=== PATIENT | female | born 1970 | race Caucasian/White ===

== ENCOUNTER 2019-06-09 12:37 | Observation (INO) | payer BC, OTHER ==
[2019-06-09 13:18] LABS: Absolute Lymphocytes (CBC) 1.5 K/uL (0.7-4.9); Basophils % 1.2 % (0-1.3); Hematocrit 42.9 % (36.0-45.0); Lymphocytes % 19.1 % (15.3-44.8); MPV 8.2 fL (7.6-11.3); RBC Red Blood Cell Count 5.04 M/uL (3.86-4.86)
--- NOTE | 2019-06-09 13:39 | EDPHYS ---
Physician Documentation [facility] Name: Imelda Quiñonez Age: 48 yrs Sex: Female : 1970 Arrival Date: 06/09/2019 Time: 12:38 Bed 6 Private MD: ED Physician Lj Urbina HPI: 06/09 13:33 This 48 yrs old Female presents to ER via Ambulatory with complaints of Chest alisha Pain, Numbness Of Arm. 13:33 The patient or guardian reports chest pain that is located primarily in the substernal alisha area, anterior chest wall, left. Onset: just prior to arrival. The pain radiates to the left arm. Associated signs and symptoms: The patient has no apparent associated signs or symptoms. The chest pain is described as a heaviness, a pressure. Modifying factors: The symptoms are alleviated by nothing. the symptoms are aggravated by nothing. Severity of pain: At its worst the pain was mild moderate in the emergency department the pain has improved mildly. The patient has not experienced similar symptoms in the past. Historical: - Allergies: 12:46 No Known Allergies; ca1 - Home Meds: 12:46 lisinopril-hydrochlorothiazide oral oral once daily [Active]; ca1 - PMHx: 12:46 Hypertension; ca1 - PSHx: 12:46 ; Tubal ligation; ca1 - Immunization history:: Adult Immunizations up to date. - Social history:: Smoking status: Patient reports the use of cigarette tobacco products, smokes one-half pack cigarettes per day. ROS: 13:33 Constitutional: Negative for fever, chills, and weight loss, Eyes: Negative for injury, alisha pain, redness, and discharge, ENT: Negative for injury, pain, and discharge, Neck: Negative for injury, pain, and swelling, Respiratory: Negative for shortness of breath, cough, wheezing, and pleuritic chest pain, Abdomen/GI: Negative for abdominal pain, nausea, vomiting, diarrhea, and constipation, Back: Negative for injury and pain, : Negative for injury, bleeding, discharge, and swelling, MS/Extremity: Negative for injury and deformity, Skin: Negative for injury, rash, and discoloration, Neuro: Negative for headache, weakness, numbness, tingling, and seizure, Psych: Negative for depression, anxiety, suicide ideation, homicidal ideation, and hallucinations, Endocrine: Negative for neck swelling, polydipsia, polyuria, polyphagia, and marked weight changes, Hematologic/Lymphatic: Negative for swollen nodes, abnormal bleeding, and unusual bruising. 13:33 Cardiovascular: Positive for chest pain, of the chest. Exam: 13:33 Constitutional: This is a well developed, well nourished patient who is awake, alert, alisha and in no acute distress. Head/Face: Normocephalic, atraumatic. Eyes: Pupils equal round and reactive to light, extra-ocular motions intact. Lids and lashes normal. Conjunctiva and sclera are non-icteric and not injected. Cornea within normal limits. Periorbital areas with no swelling, redness, or edema. ENT: Nares patent. No nasal discharge, no septal abnormalities noted. Tympanic membranes are normal and external auditory canals are clear. Oropharynx with no redness, swelling, or masses, exudates, or evidence of obstruction, uvula midline. Mucous membranes moist. Neck: Trachea midline, no thyromegaly or masses palpated, and no cervical lymphadenopathy. Supple, full range of motion without nuchal rigidity, or vertebral point tenderness. No Meningismus. Chest/axilla: Normal chest wall appearance and motion. Nontender with no deformity. No lesions are appreciated. Cardiovascular: Regular rate and rhythm with a normal S1 and S2. No gallops, murmurs, or rubs. Normal PMI, no JVD. No pulse deficits. Respiratory: Lungs have equal breath sounds bilaterally, clear to auscultation and percussion. No rales, rhonchi or wheezes noted. No increased work of breathing, no retractions or nasal flaring. Abdomen/GI: Soft, non-tender, with normal bowel sounds. No distension or tympany. No guarding or rebound. No evidence of tenderness throughout. Back: No spinal tenderness. No costovertebral tenderness. Full range of motion. Female : Normal external genitalia. Skin: Warm, dry with normal turgor. Normal color with no rashes, no lesions, and no evidence of cellulitis. MS/ Extremity: Pulses equal, no cyanosis. Neurovascular intact. Full, normal range of motion. Neuro: Awake and alert, GCS 15, oriented to person, place, time, and situation. Cranial nerves II-XII grossly intact. Motor strength 5/5 in all extremities. Sensory grossly intact. Cerebellar exam normal. Normal gait. Psych: Awake, alert, with orientation to person, place and time. Behavior, mood, and affect are within normal limits. 13:33 Musculoskeletal/extremity: Extremities: all appear grossly normal, with no appreciated pain with palpation, ROM: no acute changes, Circulation is intact in all extremities. Sensation intact. Compartment Syndrome exam of affected extremity: is normal. DVT Exam: No signs of deep vein thrombosis. no pain, no swelling, no tenderness, negative Homans' sign noted on exam, no appreciated bluish discoloration, no erythema, no increased warmth. Vital Signs: 12:44 Resp 21; Weight 117.93 kg; Height 5 ft. 9 in. (175.26 cm); Pain 6/10; ca1 13:13 BP 131 / 91; Pulse 92; Resp 22; Temp 98; Pulse Ox 100% ; sv 14:23 BP 137 / 84; Pulse 84; Resp 15; Pulse Ox 100% on 2 lpm NC; sv 14:50 BP 157 / 82 LA Sitting (auto/lg); Pulse 85; Resp 17; Pulse Ox 100% on 2 lpm NC; sv 15:00 BP 143 / 65; Pulse 82; Resp 12; Pulse Ox 100% on 2 lpm NC; sv 15:40 BP 120 / 81; Pulse 77; Resp 16; Pulse Ox 100% on 2 lpm NC; sv 12:44 Body Mass Index 38.39 (117.93 kg, 175.26 cm) ca1 Procedures: 15:25 Peripheral line: by aseptic technique a peripheral line was placed in the right [facility] external jugular vein. MDM: 12:43 Patient medically screened. [facility] 13:33 Data reviewed: vital signs, nurses notes, lab test result(s), EKG, radiologic studies, [facility] CT scan, plain films. 06/09 12:42 Order name: Basic Metabolic Panel; Complete Time: 14:40 [facility] 06/09 12:42 Order name: CBC with Diff; Complete Time: 13:31 [facility] 06/09 12:42 Order name: LFT's; Complete Time: 14:40 [facility] 06/09 12:42 Order name: Magnesium; Complete Time: 14:40 [facility] 06/09 12:42 Order name: NT PRO-BNP; Complete Time: 14:40 [facility] 06/09 12:42 Order name: PT-INR; Complete Time: 14:40 [facility] 06/09 12:42 Order name: Troponin (emerg Dept Use Only); Complete Time: 14:40 [facility] 06/09 12:42 Order name: XRAY Chest (1 view); Complete Time: 14:13 [facility] 06/09 12:42 Order name: Lipase; Complete Time: 14:40 [facility] 06/09 13:33 Order name: CT Aorta for Dissection [facility] 06/09 15:14 Order name: CT; Complete Time: 15:17 EDMS 06/09 15:16 Order name: US Extremity Venous W Compression Alex 06/09 15:39 Order name: Echo w/ Doppler sv 06/09 12:42 Order name: EKG; Complete Time: 12:43 [facility] 06/09 12:42 Order name: Cardiac monitoring; Complete Time: 13:12 [facility] 06/09 12:42 Order name: EKG - Nurse/Tech; Complete Time: 13:13 [facility] 06/09 12:42 Order name: IV Saline Lock; Complete Time: 13:13 [facility] 06/09 12:42 Order name: Labs collected and sent; Complete Time: 13:13 [facility] 06/09 12:42 Order name: O2 Per Protocol; Complete Time: 13:13 [facility] 06/09 12:42 Order name: O2 Sat Monitoring; Complete Time: 13:13 [facility] 06/09 13:26 Order name: Labs - recollect needed: PT and Chemistry; Complete Time: 14:58 dh4 Administered Medications: 14:25 Drug: NS 0.9% 1000 ml Route: IV; Rate: 125 ml/hr; Site: right upper arm; sv 16:33 Follow up: Response: No adverse reaction; IV Status: Infusion continued upon admission sv 14:25 Drug: Pepcid 20 mg Route: IVP; Site: right upper arm; sv 15:32 Follow up: Response: No adverse reaction sv 14:27 Drug: Zofran (Ondansetron) 4 mg Route: IVP; Site: right upper arm; sv 15:33 Follow up: Response: No adverse reaction sv 14:29 Drug: morphine 4 mg {Note: RASS2.} Route: IVP; Site: right upper arm; sv 15:34 Follow up: Response: No adverse reaction; RASS: Alert and Calm (0) sv 15:15 Drug: Lopressor 5 mg Route: IVP; Site: right jugular; sv 15:39 Follow up: Response: No adverse reaction sv 15:32 Not Given (Physician Discretion): Lopressor (metoprolol TARTRATE) 50 mg PO once sv 15:32 Drug: Lovenox 1 mg/kg Route: Sub-Q; Site: right lower abdomen; sv 15:39 Follow up: Response: No adverse reaction sv Disposition: 06/09/19 13:37 Hospitalization ordered by Pako Pickens for Inpatient Admission. Preliminary diagnosis are Other chest pain, Essential (primary) hypertension, Tobacco abuse counseling, Tobacco use, Pulmonary embolism - right lower lobe. - Bed requested for Telemetry/MedSurg (Inpatient). - Status is Inpatient Admission. sv - Condition is Fair. - Problem is new. - Symptoms have improved. Signatures: Dispatcher [employer] EDAve De La Cruz RN RN sv Anderson, Corey, MD MD cha Acob, Cheryl, RN RN [facility] Osiel Maria [facility] Corrections: (The following items were deleted from the chart) 15:11 13:37 Hospitalization Ordered by Pako Pickens DO for Inpatient Admission. Preliminary [facility] diagnosis is Other chest pain; Essential (primary) hypertension; Tobacco abuse counseling; Tobacco use. Bed requested for Telemetry/MedSurg (Inpatient). Status is Inpatient Admission. Condition is Fair. Problem is new. Symptoms have improved. alisha 15:21 15:11 06/09/2019 13:37 Hospitalization Ordered by Pako Pickens DO for Inpatient alisha Admission. Preliminary diagnosis is Other chest pain; Essential (primary) hypertension; Tobacco abuse counseling; Tobacco use. Bed requested for Telemetry/MedSurg (Inpatient). Status is Inpatient Admission. Condition is Fair. Problem is new. Symptoms have improved. [facility] 16:32 15:21 06/09/2019 13:37 Hospitalization Ordered by Pako Pickens DO for Inpatient sv Admission. Preliminary diagnosis is Other chest pain; Essential (primary) hypertension; Tobacco abuse counseling; Tobacco use; Pulmonary embolism - right lower lobe. Bed requested for Telemetry/MedSurg (Inpatient). Status is Inpatient Admission. Condition is Fair. Problem is new. Symptoms have improved. alisha
--- NOTE | 2019-06-09 13:39 | ER ---
Nurse's Notes [facility] Name: Imelda Quiñonez Age: 48 yrs Sex: Female : 1970 Arrival Date: 06/09/2019 Time: 12:38 Bed 6 Private MD: Diagnosis: Other chest pain;Essential (primary) hypertension;Tobacco abuse counseling;Tobacco use;Pulmonary embolism-right lower lobe Presentation: 06/09 12:44 Chief complaint: Patient states: chest pain that radiates towards back that began 30 ca1 minutes ago. Coronavirus screen: The patient has NOT traveled to [place] in the past 14 days. Proceed with normal triage procedures. Ebola Screen: Patient denies exposure to infectious person. Patient denies travel to an Ebola-affected area in the 21 days before illness onset. Risk Assessment: Do you want to hurt yourself or someone else? Patient reports no desire to harm self or others. 12:44 Acuity: XIN 2 ca1 12:44 Method Of Arrival: Ambulatory ca1 13:15 Initial Sepsis Screen: Does the patient meet any 2 criteria? RR > 20 per min. No. sv Patient's initial sepsis screen is negative. Does the patient have a suspected source of infection? No. Patient's initial sepsis screen is negative. Onset of symptoms was June 09, 2019. Historical: - Allergies: 12:46 No Known Allergies; ca1 - Home Meds: 12:46 lisinopril-hydrochlorothiazide oral oral once daily [Active]; ca1 - PMHx: 12:46 Hypertension; ca1 - PSHx: 12:46 ; Tubal ligation; ca1 - Immunization history:: Adult Immunizations up to date. - Social history:: Smoking status: Patient reports the use of cigarette tobacco products, smokes one-half pack cigarettes per day. Screenin:14 Abuse screen: Denies threats or abuse. Denies injuries from another. Nutritional sv screening: No deficits noted. Tuberculosis screening: No symptoms or risk factors identified. Fall Risk None identified. Assessment: 12:45 Also complains of shortness of breath. General: Appears in no apparent distress. sv uncomfortable, well groomed, well developed, Behavior is cooperative, appropriate for age, restless. Pain: Complains of pain in anterior aspect of left upper chest and left breast Pain radiates to back, chest and left arm Pain currently is 10 out of 10 on a pain scale. Quality of pain is described as sharp, Pain began suddenly, 30 min ago. Is continuous. Neuro: Level of Consciousness is awake, alert, obeys commands, Oriented to person, place, time, situation, Moves all extremities. Full function Gait is steady, Speech is normal. Cardiovascular: Patient's skin is warm and dry. Rhythm is sinus rhythm. Respiratory: Airway is patent Respiratory effort is even, unlabored, Respiratory pattern is regular, symmetrical. Derm: Skin is intact, Skin is pink, warm \T\ dry. Musculoskeletal: Range of motion: intact in all extremities. 13:50 Reassessment: Patient appears in no apparent distress at this time. Patient and/or sv family updated on plan of care and expected duration. Pain level reassessed. Patient is alert, oriented x 3, equal unlabored respirations, skin warm/dry/pink. Cardiovascular: Chest pain quality is pressure. 14:50 Reassessment: Pt back from CT, Joe stated that the IV to the right upper arm sv infiltrated after the CT study was done. Informed Dr Urbina. 14:59 Reassessment: Dr Urbina at the bedside attempting to place another IV. sv 15:00 Reassessment: Patient appears in no apparent distress at this time. Patient and/or sv family updated on plan of care and expected duration. Pain level reassessed. Patient is alert, oriented x 3, equal unlabored respirations, skin warm/dry/pink. 15:40 Reassessment: Echo at the bedside. sv 16:05 Reassessment: Patient appears in no apparent distress at this time. Patient and/or sv family updated on plan of care and expected duration. Pain level reassessed. Patient is alert, oriented x 3, equal unlabored respirations, skin warm/dry/pink. US at the bedside. Vital Signs: 12:44 Resp 21; Weight 117.93 kg; Height 5 ft. 9 in. (175.26 cm); Pain 6/10; ca1 13:13 BP 131 / 91; Pulse 92; Resp 22; Temp 98; Pulse Ox 100% ; sv 14:23 BP 137 / 84; Pulse 84; Resp 15; Pulse Ox 100% on 2 lpm NC; sv 14:50 BP 157 / 82 LA Sitting (auto/lg); Pulse 85; Resp 17; Pulse Ox 100% on 2 lpm NC; sv 15:00 BP 143 / 65; Pulse 82; Resp 12; Pulse Ox 100% on 2 lpm NC; sv 15:40 BP 120 / 81; Pulse 77; Resp 16; Pulse Ox 100% on 2 lpm NC; sv 12:44 Body Mass Index 38.39 (117.93 kg, 175.26 cm) ca1 ED Course: 12:38 Patient arrived in ED. mr 12:41 Lj Urbina MD is Attending Physician. alisha 12:42 EKG done, by radioisotope technologist. reviewed by Lj Urbina MD. sv 12:45 Triage completed. ca1 12:46 Arm band placed on right wrist. Patient placed in an exam room, on a stretcher, on ca1 airline attendant, on pulse oximetry. 12:50 Patient has correct armband on for positive identification. Placed in gown. Bed in low sv position. Call light in reach. Side rails up X 1. Adult w/ patient. construction skills teacher on. Pulse ox on. NIBP on. Door closed. Head of bed elevated. 12:50 Oxygen administration via nasal cannula \T\ 2L/min. sv 12:55 Missed attempt(s): 20 gauge in left forearm. Bleeding controlled, band aid applied, sv catheter tip intact. 13:05 Inserted saline lock: 22 gauge in right forearm, using aseptic technique. ,using sv aseptic technique. diffusics Blood collected. Flushed right forearm with 5 ml normal saline. 13:11 Ave Raymond, ROSALIA is Primary Nurse. sv 13:12 XRAY Chest (1 view) Sent. sv 13:23 Awaiting ED provider evaluation. sv 13:25 ED physician to see patient. sv 13:26 XRAY Chest (1 view) In Process Unspecified. EDMS 13:37 Pako Pickens DO is Hospitalizing Provider. alisha 13:40 Missed attempt(s): 22 gauge in left forearm. done by hermann LINDSEY. Bleeding controlled, sv band aid applied, catheter tip intact. 13:57 IV discontinued, intact, No redness/swelling at site. Pressure dressing applied, IV to sv the right FA. 14:20 Inserted saline lock: 22 gauge in right upper arm, using aseptic technique. ,using sv aseptic technique. diffusics Flushed right with 2 ml normal saline. 15:00 Missed attempt(s): 18 gauge in left EJ, done by Dr Urbina. Bleeding controlled, band sv aid applied, catheter tip intact. 15:05 Inserted saline lock: 18 gauge in right EJ, using aseptic technique. ,using aseptic sv technique. done by Dr Urbina. 15:20 CT Aorta for Dissection Sent. sv 15:41 No provider procedures requiring assistance completed. sv Administered Medications: 14:25 Drug: NS 0.9% 1000 ml Route: IV; Rate: 125 ml/hr; Site: right upper arm; sv 16:33 Follow up: Response: No adverse reaction; IV Status: Infusion continued upon admission sv 14:25 Drug: Pepcid 20 mg Route: IVP; Site: right upper arm; sv 15:32 Follow up: Response: No adverse reaction sv 14:27 Drug: Zofran (Ondansetron) 4 mg Route: IVP; Site: right upper arm; sv 15:33 Follow up: Response: No adverse reaction sv 14:29 Drug: morphine 4 mg {Note: RASS2.} Route: IVP; Site: right upper arm; sv 15:34 Follow up: Response: No adverse reaction; RASS: Alert and Calm (0) sv 15:15 Drug: Lopressor 5 mg Route: IVP; Site: right jugular; sv 15:39 Follow up: Response: No adverse reaction sv 15:32 Not Given (Physician Discretion): Lopressor (metoprolol TARTRATE) 50 mg PO once sv 15:32 Drug: Lovenox 1 mg/kg Route: Sub-Q; Site: right lower abdomen; sv 15:39 Follow up: Response: No adverse reaction sv Outcome: 13:37 Decision to Hospitalize by Provider. alisha 15:41 Admitted to Tele accompanied by tech, via stretcher, room 403, with chart, Report sv called to Maria Luisa LINDSEY 15:41 Condition: stable 15:41 Instructed on the need for admit. 16:32 Patient left the ED. sv Signatures: Dispatcher [employer] EDMS Ave Raymond RN RN sv Anderson, Corey, MD MD cha Rivera, Mary mr Acob, Cheryl, RN RN ca1 Corrections: (The following items were deleted from the chart) 13:25 12:45 Pain: Complains of pain in anterior aspect of left upper chest and left breast sv Pain radiates to left arm Pain currently is 10 out of 10 on a pain scale. Quality of pain is described as sharp, Pain began suddenly, 30 min ago. Is continuous, sv 14:29 morphine 4 mg IVP in right upper arm sv 15:00 Response: No adverse reaction sv sv
[2019-06-09] MEDS ORDERED: MORPHINE 4 MG/ML SYR ONE (13:40)
[2019-06-09] MEDS ORDERED: FAMOTIDINE 20 MG/2 ML VIAL IV ONE (13:41)
[2019-06-09] MEDS ORDERED: ONDANSETRON 4 MG/2 ML VIAL ONE (13:41)
[2019-06-09] MEDS ORDERED: METOPROLOL TARTRATE 5 MG/5 ML INJ IV ONE (13:41)
[2019-06-09] MEDS ORDERED: NA CHLORIDE 0.9% 1,000 ML ONE (13:41)
--- NOTE | 2019-06-09 13:48 | RAD REPORT ---
EXAM DESCRIPTION: RAD - Chest Single View - 06/09/2019 1:25 pm CLINICAL HISTORY: CHEST PAIN COMPARISON: No comparisons TECHNIQUE: AP portable chest image was obtained 06/09/2019 1:25 pm . FINDINGS: Lungs are clear. Heart and vasculature are normal. No measurable pleural effusion and no p neumothorax. No acute bony abnormality seen. No acute aortic findings suspected. IMPRESSION: No acute cardiopulmonary process.
[2019-06-09 14:10] LABS: Protime INR 1.02
[2019-06-09 14:21] LABS: ALT/SGPT 102 U/L (12-78); AST/SGOT 43 U/L (15-37); Albumin 3.5 g/dL (3.4-5.0); Alkaline Phosphatase 88 U/L (45-117); BUN Blood Urea Nitrogen 13 mg/dL (7-18); Bicarbonate 24 mmol/L (21-32); Bilirubin Direct 0.2 mg/dL (0-0.2); Bilirubin Total 0.5 mg/dL (0.2-1.0); Glucose Level 110 mg/dL (74-106); Lipase 138 U/L (73-393); NT PRO-BNP 51 pg/mL (<125); Potassium 3.3 mmol/L (3.5-5.1); Protein, Total 7.8 g/dL (6.4-8.2); Sodium Level 138 mmol/L (136-145); Troponin (Emerg Dept Use Only) < 0.02 ng/mL (0.0-0.045)
--- NOTE | 2019-06-09 14:22 | P.HP ---
Certification for Inpatient Patient admitted to: Observation With expected LOS: <2 Midnights Patient will require the following post-hospital care: None Practitioner: I am a practitioner with admitting privileges, knowledge of patient current condition, hospital course, and medical plan of care. Services: Services provided to patient in accordance with Admission requirements found in Title 42 Section 412.3 of the Code of Federal Regulations Patient History Date of Service: 06/09/19 Primary Care Provider: [facility] Reason for admission: Chest pain History of Present Illness: 48-year-old female with history of recently diagnosed hypertension presented to the emergency room with chest pain. Patient was seen by her PCP last week for UTI. At that time she was found to have elevated blood pressure. She kept a log of her blood pressures and followed up with her PCP yesterday. Blood pressure remain elevated. She was started on lisinopril hydrochlorothiazide 10/12.5 mg daily. She started her medication this morning. Then around 11:00 a.m. she started feel lightheaded some dizziness noted. She reported some chest pain mainly to the left lower rib cage region on the left side. The pain would radiate to her breast region and then to the center of the chest. It was a severe pain 10/10. She continued to have chest pain and mild shortness of breath. He came to the ER for further evaluation. In the ER patient evaluated. Blood pressure stable. EKG showed no significant is T changes. Troponin pending at this time. CBC unremarkable. Chest x-ray unremarkable. CT chest pending at this time. Patient admitted for observation. When I saw the patient ER, she appeared stable. Some discomfort with mobility. Patient reports history recently diagnosed hypertension. She does smoke regularly. Drinks on occasion. This family history of heart disease. Home medications list reviewed: Yes - Past Medical/Surgical History -: Elevated blood pressures suspect hypertension -: Obesity -: Tobacco abuse -: History of elevated rheumatoid factor -: Tubal ligation -: Psychosocial/ Personal History: Patient is . 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 - Family History Father -: Heart disease, Hypertension, Lung disease (COPD) Mother -: Heart disease, Hypertension, Stroke - Social History Smoking Status: Heavy Tobacco smoker (>10 cigarettes/day) Counseled patient to stop smoking for: less than 10 minutes Smoking therapy provided: Yes Patient receptive to therapy: Yes Alcohol use: Yes Caffeine use: Yes Place of Residence: Home Review of Systems General: As per HPI Eyes: Unremarkable ENT: Unremarkable Respiratory: Shortness of Breath, As per HPI Cardiovascular: Chest Pain, Light Headedness, As per HPI Gastrointestinal: Unremarkable Genitourinary: Unremarkable Musculoskeletal: Unremarkable Integumentary: Unremarkable Neurological: Unremarkable Lymphatics: Unremarkable Physical Examination - Physical Exam General: Alert, In no apparent distress, Oriented x3, Cooperative HEENT: Atraumatic, Normocephalic, Mucous membr. moist/pink Neck: Supple Respiratory: Clear to auscultation bilaterally, Normal air movement, Other ( Point tenderness to the left ribcage region) Cardiovascular: Normal pulses, Regular rate/rhythm Gastrointestinal: Normal bowel sounds, Soft and benign, Non-distended, No tenderness, No masses, No rebound, No guarding Musculoskeletal: No erythema, No tenderness, No warmth Integumentary: No tenderness/swelling, No erythema, No warmth, No cyanosis Neurological: Normal speech, Normal strength at 5/5 x4 extr, Normal tone, Normal affect - Studies Laboratory Data (last 24 hrs) 06/09/19 13:05: WBC 7.9, Hgb 14.4, Hct 42.9, Plt Count 269 Assessment and Plan - Plan Impression: Chest pain atypical Recent diagnosis of hypertension Tobacco abuse Suspect underlying obstructive sleep apnea Plan: Chest pain atypical: Patient will be admitted for observation. Will continue to monitor patient on telemetry and cardiac enzymes. Will provide aspirin, DVT prophylaxis-Lovenox and Lipitor. Will hold off on blood pressure medication at this time. Will monitor blood pressures closely. Patient may require medication. Will provide medication for pain. Suspect noncardiac cause. Will monitor closely. CT chest pending at this time. Will obtain echocardiogram to further evaluate. Anticipate discharge in the next 24 hr with clinical improvement. Recent diagnosis of hypertension: Patient recently started on lisinopril hydrochlorothiazide. This may have dropped her blood pressure this morning causing the chest pain. Will hold off on lisinopril hydrochlorothiazide at this time. Will monitor blood pressure closely. Tobacco abuse: Will provide nicotine patch. Tobacco cessation addressed in detail. Suspect underlying obstructive sleep apnea: Will recommend sleep study to be done as an outpatient. Discharge Plan: Home Plan to discharge in: 24 Hours - Advance Directives Does patient have a Living Will: No Does patient have a Durable POA for Healthcare: No - Code Status/Comfort Care Code Status Assessed: Yes (patient is full code) Time Spent Managing Pts Care (In Minutes): 55
--- NOTE | 2019-06-09 15:06 | RAD REPORT ---
EXAM DESCRIPTION: CT - Angio Aorta For Dissection - 06/09/2019 2:43 pm CLINICAL HISTORY: Chest pain radiating to the back. CHEST PAIN COMPARISON: No comparisons TECHNIQUE: CT angiography of the aorta was performed with MIPs. All CT scans are performed using dose optimization technique as appropriate and may include automated exposure control or mA/KV adjustment according to patient size. FINDINGS: A left aortic arch is present with normal branching pattern of the great vessels.No acute aortic finding is seen such as aneurysm, penetrating ulcer or dissection. The celiac axis, SMA, YONG and renal arteries are widely patent. Filling defect is present in the posterior right lower lobe pulmonary arterial tree compatible with p ulmonary embolism. No RV strain pattern. The lungs are clear. The liver demonstrates no focal mass or biliary dilatation.The spleen, pancreas, adrenal glands and k idneys are within normal limits for arterial phase imaging. No bowel obstruction, free fluid or abscess.No pathologic enlarged lymphadenopathy identified. No fracture or worrisome bone lesion seen. IMPRESSION: No acute aortic finding is demonstrated. Positive for right lower lobe segmental pulmonary embolism.
[2019-06-09] MEDS ORDERED: ENOXAPARIN 30 MG/0.3 ML SQ ONE (15:31)
[2019-06-09] MEDS ORDERED: ENOXAPARIN 100 MG/ML SYR SQ ONE (15:31)
--- NOTE | 2019-06-09 16:41 | RAD REPORT ---
EXAM DESCRIPTION: US - Extrem Venous W Compress Alex - 06/09/2019 4:33 pm CLINICAL HISTORY: Pain;Swelling Bilateral leg edema and swelling. COMPARISON: No comparisons TECHNIQUE: Real-time sonographic interrogation of the left and right lower extremity deep venous sys tems was performed. FINDINGS: Normal compressibility, flow augmentation, phasic flow and spontaneous flow is identified in both the left and right lower extremity deep venous systems. IMPRESSION: No sonographic evidence of left or right lower extremity deep venous thrombosis.
[2019-06-09] MEDS ORDERED: ACETAMINOPHEN 500 MG TAB PO PRN (17:01)
[2019-06-09] MEDS ORDERED: ONDANSETRON 4 MG/2 ML VIAL IV PRN (17:01)
[2019-06-09] MEDS ORDERED: HYDROCODONE/APAP 7.5/325 MG TAB PO PRN (17:01)
[2019-06-09] MEDS ORDERED: TRAMADOL HCL 50 MG TAB PO PRN (17:01)
[2019-06-09] MEDS ORDERED: POTASSIUM 25 MEQ EFFERV TAB PO ONE (18:00)
[2019-06-09] MEDS ORDERED: Enoxaparin 120 MG/0.8 ML SYR SQ SCH (18:00)
[2019-06-09] MEDS ORDERED: NICOTINE 21 MG/PAT TD SCH (18:00)
[2019-06-09 18:28] VITALS: BMI 38.4
[2019-06-09 18:51] LABS: Barbiturates NEGATIVE (NEGATIVE); Benzodiazepines NEGATIVE (NEGATIVE); Cocaine NEGATIVE (NEGATIVE); METHAMPHETAM NEGATIVE (NEGATIVE); Methadone NEGATIVE (NEGATIVE); Opiates POSITIVE (NEGATIVE); Phencyclidine NEGATIVE (NEGATIVE); THC Cannibis NEGATIVE (NEGATIVE)
[2019-06-09 20:09] LABS: CKMB Creatine Kinase MB 2.2 ng/mL (0.3-3.6); Creatine Phosphokinase 54 U/L (26-192); Troponin I < 0.02 ng/mL (0.0-0.045)
[2019-06-10 03:28] LABS: CKMB Creatine Kinase MB 2.4 ng/mL (0.3-3.6); Creatine Phosphokinase 50 U/L (26-192); Troponin I < 0.02 ng/mL (0.0-0.045)
[2019-06-10 06:55] LABS: Magnesium 2.2 mg/dL (1.8-2.4); Potassium 3.8 mmol/L (3.5-5.1)
[2019-06-10 06:58] LABS: Thyroid Stimulating Hormone 5.28 uIU/mL (0.360-3.740)
[2019-06-10] MEDS ORDERED: NA CHLORIDE 0.9% 1,000 ML IV SCH (08:00)
[2019-06-10] MEDS ORDERED: NA CHLORIDE 0.9% 500 ML IV ONE (08:00)
[2019-06-10 08:32] VITALS: O2SAT 96
[2019-06-10] MEDS ORDERED: ASPIRIN EC 81 MG TAB PO SCH (09:00)
[2019-06-10] MEDS ORDERED: ENOXAPARIN 40 MG/0.4 ML SQ SCH (09:00)
[2019-06-10] MEDS ORDERED: POTASSIUM CL SA 10 MEQ TAB PO ONE (09:00)
--- NOTE | 2019-06-10 09:22 | P.CNS ---
Date of Consult: 06/10/19 Primary Care Provider: [facility] Chief Complaint: Pulmonary embolus History of Present Illness: Patient is 48 years of age admitted with sudden onset of left-sided pleuritic chest pain some shortness of breath recently treated for elevated blood pressure no other prior medical problems no prior history of thromboembolism admitted with a right ower lobe pulmonary emboli he denies any has symptoms of sepsis patient is a heavy smoker has dyspnea on exertion chronic cough Allergies No Known Allergies Allergy (Unverified 06/09/19 16:41) Home Medications: Lisinopril/Hydrochlorothiazide [Lisinopril-Hctz 10-12.5 mg Tab] 1 tab PO DAILY 06/09/19 Apixaban [Eliquis] 5 mg PO SEECOM #70 tablet 06/10/19 - Past Medical/Surgical History Diabetic: No -: Elevated blood pressures suspect hypertension -: Obesity -: Tobacco abuse -: History of elevated rheumatoid factor -: Tubal ligation -: Psychosocial/ Personal History: Patient is . 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 - Family History Father Medical History: Heart disease, Hypertension, Lung disease Mother Medical History: Heart disease, Hypertension, Stroke - Social History Smoking Status: Current every day smoker Alcohol use: Yes CD- Drugs: No Caffeine use: Yes Place of Residence: Home Review of Systems 10-point ROS is otherwise unremarkable Physical Examination Temp Pulse Resp BP Pulse Ox 97 F 74 18 110/50 L 18 L 06/10/19 08:00 06/10/19 08:00 06/10/19 08:00 06/10/19 08:00 06/10/19 08:00 General: Alert HEENT: Atraumatic Neck: Supple Respiratory: Clear to auscultation bilaterally Cardiovascular: No edema, Normal pulses, Regular rate/rhythm, Normal S1 S2 Laboratory Data (last 24 hrs) 06/09/19 13:45: PT 12.0, INR 1.02 06/09/19 13:45: Sodium 138, Potassium 3.3 L, BUN 13, Creatinine 0.89, Glucose 110 H, Magnesium 2.0, Total Bilirubin 0.5, AST 43 H, ALT 102 H, Alkaline Phosphatase 88, Lipase 138 06/09/19 13:05: WBC 7.9, Hgb 14.4, Hct 42.9, Plt Count 269 - Problems (1) Pulmonary emboli Current Visit: Yes Status: Acute Plan: Patient is 48 years of age admitted with right lower lobe pulmonary embolism as a filling defect over she complains of pain in the left side final signs blood pressure all stable has not been feeling well complaining of some dizziness as recently started on lisinopril oxygenation satisfactory may be side effect from the medication as stated discharged on a low-dose diuretic Maxzide and either Eliquis Xarelto ambulate no evidence of a DVT patient can be discharged home on the Dulera from the hospital and low-dose prednisone follow up with me in 2 weeks Qualifiers: Acute cor pulmonale presence: with acute cor pulmonale (2) COPD (chronic obstructive pulmonary disease) Current Visit: Yes Status: Acute Plan: Patient is a heavy smoker has dyspnea on exertion with a chronic cough benefit from a long-acting bronchodilator advice to quit smoking labs are unremarkable Qualifiers: Emphysema type: unspecified
[2019-06-10] MEDS ORDERED: DULERA 200/5 (MOMETASONE/FORMOTEROL) INHALER IH SCH (10:00)
[2019-06-10] MEDS ORDERED: predniSONE 20 MG TAB PO SCH (10:00)
--- NOTE | 2019-06-10 10:11 | P.DS ---
Admission Date: 06/09/19 Discharge Date: 06/10/19 Primary Care Provider: [facility] Disposition: ROUTINE DISCHARGE Discharge Condition: GOOD Reason for Admission: Pulmonary embolus Consultations: Pulmonary-Dr. Paniagua Procedures: Liver ultrasound: Fatty liver identified. No portal vein thrombus noted CT chest: FINDINGS: A left aortic arch is present with normal branching pattern of the great vessels.No acute aortic finding is seen such as aneurysm, penetrating ulcer or dissection. The celiac axis, SMA, YONG and renal arteries are widely patent. Filling defect is present in the posterior right lower lobe pulmonary arterial tree compatible with pulmonary embolism. No RV strain pattern. The lungs are clear. The liver demonstrates no focal mass or biliary dilatation.The spleen, pancreas , adrenal glands and kidneys are within normal limits for arterial phase imaging. No bowel obstruction, free fluid or abscess.No pathologic enlarged lymphadenopathy identified. No fracture or worrisome bone lesion seen. IMPRESSION: No acute aortic finding is demonstrated. Positive for right lower lobe segmental pulmonary embolism. Venous doppler: FINDINGS: Normal compressibility, flow augmentation, phasic flow and spontaneous flow is identified in both the left and right lower extremity deep venous systems. IMPRESSION: No sonographic evidence of left or right lower extremity deep venous thrombosis Medical Problem List: Chest pain secondary to right lower lobe segmental pulmonary embolism Acute renal injury likely dehydration and medication COPD Tobacco abuse Suspect underlying obstructive sleep apnea Elevated liver function secondary to fatty liver Brief History of Present Illness: 48-year-old female with history of recently diagnosed hypertension presented to the emergency room with chest pain. Patient was seen by her PCP last week for UTI. At that time she was found to have elevated blood pressure. She kept a log of her blood pressures and followed up with her PCP yesterday. Blood pressure remain elevated. She was started on lisinopril hydrochlorothiazide 10/12.5 mg daily. She started her medication this morning. Then around 11:00 a.m. she started feel lightheaded some dizziness noted. She reported some chest pain mainly to the left lower rib cage region on the left side. The pain would radiate to her breast region and then to the center of the chest. It was a severe pain 10/10. She continued to have chest pain and mild shortness of breath. He came to the ER for further evaluation. In the ER patient evaluated. Blood pressure stable. EKG showed no significant is T changes. Troponin pending at this time. CBC unremarkable. Chest x-ray unremarkable. CT chest pending at this time. Patient admitted for observation. When I saw the patient ER, she appeared stable. Some discomfort with mobility. Patient reports history recently diagnosed hypertension. She does smoke regularly. Drinks on occasion. This family history of heart disease. Hospital Course: Patient presented with chest pain. This was mainly to the left side. Upon further workup CT revealed right lower lobe segmental pulmonary embolism. Patient was started on anti coagulation therapy. No cardiac strain identified. Venous Doppler negative. Patient seen and evaluated by pulmonology. Pulmonology recommends anti coagulation therapy for at least 3-6 months. Patient may require lifelong anti coagulation therapy if further workup indicates. Lab for lupus anticoagulant, protein C/S, and factor 5 Leiden obtained. This can be followed up by pulmonology. Recommend follow up with pulmonology in 1-2 weeks to follow up this hospitalization. At discharge patient will continue with Eliquis 10 mg twice daily for 7 days then 5 mg twice daily. Education on Eliquis, pulmonary embolism provided. Patient also had low blood pressure with acute renal injury likely from dehydration. Patient was recently started on lisinopril hydrochlorothiazide for possible hypertension. Blood pressures have remained stable off medication. At discharge will recommend to discontinue lisinopril hydrochlorothiazide. Patient may monitor her blood pressures daily. Recommend to maintain blood pressures less 150/80. If blood pressure remains above 140/ 90 then patient may need to be started on medication. This can be further addressed by her PCP. Recommend to recheck BMP in 1 week. Patient likely with underlying COPD. Pulmonology recommends initiation of medication. Pulmonology recommends treatment. At discharge patient will continue with prednisone 20 mg 1 pill twice daily for 5 days then 1 pill once daily for 5 days. Patient will also continue with Dulera 2 puffs twice daily and Pro air 2 puffs 3 times a day as needed for shortness of breath. Recommend follow up with pulmonology to further address. Education on COPD provided. Patient with tobacco abuse. Tobacco cessation addressed in detail. Patient plans to quit. Patient will be provided nicotine patch to help with tobacco cessation. Patient likely with underlying obstructive sleep apnea. Recommend follow up with pulmonology for sleep study to further address. Education on obstructive sleep apnea provided. Patient had elevation in liver function. Ultrasound showed fatty liver. No portal vein thrombus noted. Education on fatty liver provided. Recommend follow up with GI as an outpatient to further address. Vital Signs/Physical Exam: Temp Pulse Resp BP Pulse Ox 97 F 74 18 110/50 L 18 L 06/10/19 08:00 06/10/19 08:00 06/10/19 08:00 06/10/19 08:00 06/10/19 08:00 General: Alert, In no apparent distress, Oriented x3, Cooperative HEENT: Atraumatic Neck: Supple Respiratory: Clear to auscultation bilaterally, Normal air movement Cardiovascular: Normal pulses, Regular rate/rhythm Gastrointestinal: Normal bowel sounds, Soft and benign, Non-distended, No tenderness, No masses, No rebound, No guarding Musculoskeletal: No erythema, No tenderness, No warmth Integumentary: No tenderness/swelling, No erythema, No warmth, No cyanosis Neurological: Normal speech, Normal strength at 5/5 x4 extr, Normal tone, Normal affect Laboratory Data at Discharge: WBC 7.9 K/uL (4.3-10.9) 06/09/19 13:05 Hgb 14.4 g/dL (12.0-15.0) 06/09/19 13:05 Hct 42.9 % (36.0-45.0) 06/09/19 13:05 Plt Count 269 K/uL (152-406) 06/09/19 13:05 PT 12.0 SECONDS (9.5-12.5) 06/09/19 13:45 INR 1.02 06/09/19 13:45 Sodium 138 mmol/L (136-145) 06/10/19 05:38 Potassium 3.8 mmol/L (3.5-5.1) 06/10/19 05:38 BUN 16 mg/dL (7-18) 06/10/19 05:38 Creatinine 1.00 mg/dL (0.55-1.3) 06/10/19 05:38 Glucose 100 mg/dL (74-106) 06/10/19 05:38 Magnesium 2.2 mg/dL (1.8-2.4) 06/10/19 05:38 Total Bilirubin 0.5 mg/dL (0.2-1.0) 06/09/19 13:45 AST 43 U/L (15-37) H 06/09/19 13:45 ALT 102 U/L (12-78) H 06/09/19 13:45 Alkaline Phosphatase 88 U/L (45-117) 06/09/19 13:45 Troponin I < 0.02 ng/mL (0.0-0.045) 06/10/19 02:56 Triglycerides 86 mg/dL (<150) 06/10/19 05:38 Cholesterol 198 mg/dL (<200) 06/10/19 05:38 HDL Cholesterol 70 mg/dL (40-60) H 06/10/19 05:38 Cholesterol/HDL Ratio 2.83 06/10/19 05:38 Lipase 138 U/L (73-393) 06/09/19 13:45 Home Medications: Albuterol Sulfate [Proair Hfa] 2 puff IH TID PRN #1 hfa.aer.ad 06/10/19 Apixaban [Eliquis] 5 mg PO SEECOM #70 tablet 06/10/19 Mometasone/Formoterol [Dulera 200 Mcg/5 Mcg Inhaler] 2 puff IH BID #1 inhaler Nicotine [Nicoderm*] 21 mg TD DAILY #30 patch.td24 06/10/19 predniSONE [Prednisone*] 20 mg PO SEECOM #15 tab 06/10/19 New Medications: Albuterol Sulfate [Proair Hfa] 2 puff IH TID PRN #1 hfa.aer.ad PRN Reason: Shortness Of Breath Apixaban [Eliquis] 5 mg PO SEECOM #70 tablet Mometasone/Formoterol [Dulera 200 Mcg/5 Mcg Inhaler] 2 puff IH BID #1 inhaler Nicotine [Nicoderm*] 21 mg TD DAILY #30 patch.td24 predniSONE [Prednisone*] 20 mg PO SEECOM #15 tab Patient Discharge Instructions: 1. Recommend follow up with her PCP to follow up this hospitalization. 2. Patient presented with chest pain. This was mainly to the left side. Upon further workup CT revealed right lower lobe segmental pulmonary embolism. Patient was started on anti coagulation therapy. No cardiac strain identified. Venous Doppler negative. Patient seen and evaluated by pulmonology. Pulmonology recommends anti coagulation therapy for at least 3-6 months. Patient may require lifelong anti coagulation therapy if further workup indicates. Lab for lupus anticoagulant, protein C/S, and factor 5 Leiden obtained. This can be followed up by pulmonology. Recommend follow up with pulmonology in 1-2 weeks to follow up this hospitalization. At discharge patient will continue with Eliquis 10 mg twice daily for 7 days then 5 mg twice daily. Education on Eliquis, pulmonary embolism provided. 3. Patient also had low blood pressure with acute renal injury likely from dehydration. Patient was recently started on lisinopril hydrochlorothiazide for possible hypertension. Blood pressures have remained stable off medication. At discharge will recommend to discontinue lisinopril hydrochlorothiazide. Patient may monitor her blood pressures daily. Recommend to maintain blood pressures less 150/80. If blood pressure remains above 140/ 90 then patient may need to be started on medication. This can be further addressed by her PCP. Recommend to recheck BMP in 1 week. 4. Patient likely with underlying COPD. Pulmonology recommends initiation of medication. Pulmonology recommends treatment. At discharge patient will continue with prednisone 20 mg 1 pill twice daily for 5 days then 1 pill once daily for 5 days. Patient will also continue with Dulera 2 puffs twice daily and Pro air 2 puffs 3 times a day as needed for shortness of breath. Recommend follow up with pulmonology to further address. Education on COPD provided. 5. Patient with tobacco abuse. Tobacco cessation addressed in detail. Patient plans to quit. Patient will be provided nicotine patch to help with tobacco cessation. 6. Patient had elevation in liver function. Ultrasound showed fatty liver. No portal vein thrombus noted. Education on fatty liver provided. Recommend follow up with GI as an outpatient to further address. 7. Patient likely with underlying obstructive sleep apnea. Recommend follow up with pulmonology for sleep study to further address. Education on obstructive sleep apnea provided. Diet: AHA Activity: Ad jose miguel Followup: Chino Paniagua MD [ACTIVE - CAN ADMIT] - (call to schedule appointment) Time spent managing pt's care (in minutes): 55
--- NOTE | 2019-06-10 10:36 | RAD REPORT ---
EXAM DESCRIPTION: US - Liver Only - 06/10/2019 10:20 am CLINICAL HISTORY: Elevated liver function COMPARISON: No comparisons FINDINGS: The liver demonstrates diffuse fatty infiltration.No focal liver lesion or intrahepatic bi liary dilatation.No evidence of portal vein thrombosis. IMPRESSION: Fatty liver.
--- NOTE | 2019-06-10 11:02 | EKG ---
Test Date: 2019-06-09 Test Time: 12:42:01 Phone Triage Specialist: CRISTAL MEASUREMENT RESULTS: Intervals: Rate: 112 IA: 142 QRSD: 92 QT: 346 QTc: 472 [place]: P: 71 IA: 142 QRS: 47 T: 42 INTERPRETIVE STATEMENTS: Sinus tachycardia with frequent atrial-paced complexes Abnormal ECG No previous ECG available for comparison Electronically Signed On 06-10-19 11:00:43 STRAIGHT TOOTH GEAR GENERATOR OPERATOR by Trell Hernandez
[2019-06-10 14:30] VITALS: BP 125/71; TEMP 98.4
[2019-06-10] MEDS ORDERED: RIVAROXABAN 15 MG TABLET PO SCH (17:00)
--- NOTE | 2019-06-12 08:48 | ECHO ---
HEIGHT: 5 ft 9 in WEIGHT: 260 lb 0 oz DATE OF STUDY: 06/09/[address]: Lj Urbina MD 2-DIMENSIONAL: YES M.MODE: YES DOPPLER: YES COLOR FLOW: YES TDS: YES PORTABLE: NO DEFINITY: NO BUBBLE STUDY: NO DIAGNOSIS: PULMONARY EMBOLISM CARDIAC HISTORY: CATHERIZATION: NO SURGERY: NO PROSTHETIC VALVE: NO PACEMAKER: NO MEASUREMENTS (cm) DIASTOLIC (NORMALS) SYSTOLIC (NORMALS) IVSd 1.1 (0.6-1.2) LA Diam 2.9 (1.9-4.0) LVEF 60% LVIDd 4.9 (3.5-5.7) LVIDs 3.3 (2.0-3.5) %FS 32% LVPWd 1.2 (0.6-1.2) Ao Diam 2.7 (2.0-3.7) 2 DIMENSIONAL ASSESSMENT: RIGHT ATRIUM: NORMAL LEFT ATRIUM: NORMAL RIGHT VENTRICLE: NORMAL LEFT VENTRICLE: NORMAL TRICUSPID VALVE: NORMAL MITRAL VALVE: NORMAL PULMONIC VALVE: NORMAL AORTIC VALVE: NORMAL PERICARDIAL EFFUSION: NONE AORTIC ROOT: NORMAL LEFT VENTRICULAR WALL MOTION: NORMAL DOPPLER/COLOR FLOW: TRACE TRICUSPID REGURGITATION. COMMENTS: NORMAL 2D ECHOCARDIOGRAM [facility] DOPPLER. NORMAL RIGHT VENTRICULAR SYSTOLIC PRESSURE. NORMAL RIGHT ATRIAL SIZE. TRACE TRICUSPID REGURGITATION. NO WALL MOTION ABORMALITY. NO EFFUSION. TECHNOLOGIST: Mary SEGUNDO
[2019-06-13 04:07] LABS: HBsAG Nonreactive (Nonreactive)
[2019-06-13 15:24] LABS: Protein C Antigen 96 % (70-140)
== END 2019-06-10 12:00 | disposition home or self-care (01) ==
LOC: ER 12:37 → ERHOLD 14:09 → 4TH 15:42
PROVIDERS: ADMIT Family Medicine; ATTEND Family Medicine
DX: I26.09 Other pulmonary embolism with acute cor pulmonale (principal); N17.9 Acute kidney failure, unspecified; E86.0 Dehydration; J44.9 Chronic obstructive pulmonary disease, unspecified; I10 Essential (primary) hypertension; K76.0 Fatty (change of) liver, not elsewhere classified; I07.1 Rheumatic tricuspid insufficiency; R00.0 Tachycardia, unspecified; R94.31 Abnormal electrocardiogram [ECG] [EKG]; F17.210 Nicotine dependence, cigarettes, uncomplicated; Z79.899 Other long term (current) drug therapy
CPT/HCPCS: 96361; 93005; 93306; 85025; 80048 ×2; 36415; 83735 ×2; 82550 ×2; 85610; 80061; 80076; 80307 ×8; 84443; 84484 ×3; 82553 ×2; 84439; 83690; 81241; 86038; 86225; 83880; 85302; 85305; 85306; 87522; 80074; 71275; 74175; 71045; 93970; 76705; 96375; 96372; 96374; 99285; Q9967; J1650 ×2; J7030 ×2; J2405; G0378 ×3; J7606

== ENCOUNTER 2024-07-03 07:24 | Emergency (ER) | payer BC ==
--- OUTSIDE RECORDS SUMMARY | 2024-07-03 07:28 | XMS REPORT | Continuity of Care Document ---
Author Name Unknown Address [address] [facility] [place] [address] [facility] Address [address] [facility] [place] [address] Care Team Providers Care Maxillofacial Prosthodontist Name Role Phone Stephanie Hallman Primary Care Physician [phone] HILLARY FRASER Attending Clinician Unavailable HILLARY FRASER Attending Clinician Unavailable KARLA SALAZAR Attending Clinician Unavailable KENNETH MCDANIEL Attending Clinician Unavailable Karime Cui MA Attending Clinician Unavailkavin Birmingham RN, Donna Attending Clinician Unavailable CATHY NEGRETE Attending Clinician Un available KARLA SALAZAR M.D. Attending Clinician Ashly kelly HEP, CLINIC Attending Clinician Unavailable KARLA SALAZAR Attending Clinician Ashly kelly SE, ECHO Attending Clinician Unavailable SE, NUCLEAR Attending Clinician Unavailable NIKOLAS ROCK M.D. Attending Clinician Unavailkavin mccallum MHH, GASTRO Attending Clinician Unavailable HILLARY FRASER APRN Attending Clinician Unavail able KARANSKYShay BHAIMEE Admitting Clinician Un available KARLA SALAZAR Admitting Clinician Ashly kelly Payers Payer Name Policy Type Policy Number Effective Date Expirati on Date Source OPEN ACCESS [employer] [place] EPO [id number] 2019 00:00:00 [place] [id number] 2022 00:00:00 Problems Condition Name Condition Details Condition Category Status Onset Date Resolution Date Last Treatment Date Treating Clinician Comments Source History of Anxiety and depression History of Anxiety and depression [facility] History of arthritis History of arthritis Problem [facility] History of hypothyroi dism History of hypothyroi dism Problem [facility]olve [facility] History of obstructiv e sleep apnea History of obstructiv e sleep apnea Problem [facility]olve [facility] History of pulmonary embolism History of pulmonary embolism Problem Resolve [facility] History of Seasonal allergies History of Seasonal allergies Problem Resolve d [facility] Pre-operat milton clearance Pre-operat milton clearance Problem Active [facility] Gastroesop hageal reflux disease Gastroesop hageal reflux disease Problem Active [facility] Hepatitis C Hepatitis C Problem Active [facility] Morbid obesity Morbid obesity Problem Active [facility] Steatosis of liver Steatosis of liver Problem Active [facility] Hyperlipid emia Hyperlipid emia Problem Active [facility] Hypertensi on, unspecifie d type Hypertensi on, unspecifie d type Problem Active [facility] Adult BMI 40.0-44.9 kg/sq m Adult BMI 40.0-44.9 kg/sq m Problem Active [facility] Adult BMI 39.0-39.9 kg/sq m Adult BMI 39.0-39.9 kg/sq m Problem Active [facility] Encounter for pre-operat milton laboratory testing Encounter for pre-operat milton laboratory testing Problem Active [facility] Other protein-ca danielle malnutriti on Other protein-ca danielle malnutriti on Problem Active [facility] Intestinal malabsorpt ion, unspecifie d Intestinal malabsorpt ion, unspecifie d Problem Active [facility] Family History Family Member Diagnosis Comments Start Date Stop Date Sourc e Grandmother Family history of di abetes mellitus [facility] Mother Family history of hypertension [facility] Mother Family history of ca rdiac disorder [facility] Mother Family history of ma lignant neoplasm of cervix [facility] Father Family history of hypertension [facility] Father Family history of ca rdiac disorder [facility] Sister Family history of hypertension [facility] Sister Family history of ca rdiac disorder [facility] Sister Family history of ma lignant neoplasm of cervix [facility] Sister Family history of obesity [facility] Social History Social Habit Start Date Stop Date Quantity Comments Source Sexual orientation 2020-09-28 10:12:35 Heterosexual (finding) [facility] ASSERTION Possible [facility] Tobacco use and exposure 2024-06-07 00:00:00 2024-06-07 00:00:00 Smokeless tobacco non-user [facility] Cigarettes smoked current (pack per day) - Reported 2024-06-07 00:00:00 2024-06-07 00:00:00 [facility] Cigarette pack-years 2024-06-07 00:00:00 2024-06-07 00:00:00 [facility] Alcoholic beverage intake 2024-06-07 00:00:00 2024-06-07 00:00:00 Ex-drinker (finding) [facility] History of Social function 2024-06-07 00:00:00 2024-06-07 00:00:00 [facility] Exposure to SARS-CoV-2 (event) 2021-11-02 00:00:00 2021-11-12 08:53:00 Yes [facility] Alcohol intake 2020-09-25 00:00:00 2020-09-25 00:00:00 Ex-drinker (finding) [facility] Sex 2020-06-06 04:17:20 2020-06-06 04:17:20 Female (finding) [facility] History of tobacco use 1985-10-13 00:00:00 2020-01-11 00:00:00 Cigarette Smoker [facility] Sex Assigned At 1970 00:00:00 1970 00:00:00 F [facility] Smoking Status Start Date Stop Date Source Smoker (finding) [facility] Ex-smoker 2024-06-07 00:00:00 2024-06-07 00:00:00 [facility] Never smoked tobacco [facility] th Medications Ordered Medication Name Filled Medication Name Start Date Stop Date Current Medication? Ordering Clinician Indication Dosage Frequency Signature (SIG) Comments Components Source pantoprazol e (Protonix) 40 MG EC tablet 2-26 00:00: 00 06-08 05:59 :00 Yes [id number] 40mg Take 1 tablet (40 mg total) by mouth 1 (one) time each day before breakfast. Do not crush, chew, or split. [facility] mirtazapine (Remeron) 15 MG tablet 1-23 00:00: 00 Yes 15mg Take 15 mg by mouth every night. [facility] meclizine (Antivert) 25 MG tablet 2023-04 0-16 00:00: 00 Yes 25mg Q.[id number] 3D Take 25 mg by mouth 3 (three) times a day if needed. [facility] escitalopra m (Lexapro) 10 MG tablet 7-19 00:00: 00 Yes 10mg Take 10 mg by mouth every morning. [facility] Cymbalta [address] capsule 2021-04 0-05 00:00: 00 Yes 60mg QD Take 60 mg by mouth 1 (one) time each day. [facility] hydrOXYzine pamoate (Vistaril) 25 MG capsule 2021-04 0-05 00:00: 00 Yes 25mg Q.[id number] 3D Take 25 mg by mouth 3 (three) times a day if needed. [facility] busPIRone (Buspar) 15 MG tablet 8-10 00:00: 00 Yes 15mg Q.5D Take 15 mg by mouth in the morning and 15 mg in the evening. [facility] pantoprazol e (ProtoNix) 40 MG EC tablet 2020-04 00:00: 00 04-22 05:59 :00 No [id number] 40mg TAKE 1 TABLET (40 MG TOTAL) BY MOUTH 1 (ONE) TIME EACH DAY BEFORE BREAKFAST. DO NOT CRUSH, CHEW, OR SPLIT. [facility] pantoprazol e (Protonix) 40 MG EC tablet 2020-04 0-18 00:00: 00 02-20 00:00 :00 No [id number] 40mg Take 1 tablet (40 mg total) by mouth 1 (one) time each day before breakfast. Do not crush, chew, or split. [facility] lisinopril- hydroCHLORO thiazide 10-12.5 MG tablet 09-25 20:11: 05 06-07 00:00 :00 No [facility] lisinopril- hydroCHLORO thiazide 10-12.5 MG tablet 09-25 15:11: 05 Yes [facility] omeprazole (PriLOSEC) [address] capsule 05-08 00:00: 00 Yes Take by mouth. [facility] Epclusa 400-100 MG Oral Tablet Epclusa 400-100 MG Oral Tablet Yes [facility] Vital Signs Vital Name Observation Time Observation Value Comments [facility] Systolic blood pressure 2024-06-07 14:45:00 145 mm[Hg] [facility] Diastolic blood pressure 2024-06-07 14:45:00 89 mm[Hg] [facility] Heart rate 2024-06-07 14:45:00 99 /min [facility] Body temperature 2024-06-07 14:45:00 36.22 [facility] Body height 2024-06-07 14:45:00 172.7 cm [facility] Body weight 2024-06-07 14:45:00 70.943 kg [facility] BMI 2024-06-07 14:45[facility] 2021-11-12 14:05:00 118 mm[Hg] [facility] Diastolic blood pressure 2021-11-12 14:05:00 78 mm[Hg] [facility] Heart rate 2021-11-12 14:05:00 89 /min [facility] alth Body temperature 2021-11-12 14:05:00 36.72 [facility] Body height 2021-11-12 14:05:00 172.7 cm [facility] Body weight 2021-11-12 14:05:[facility] BMI 2021-11-12 14:05:00 25.09 [facility] Sy[facility] blood pressure 2021-02-12 20:07:00 128 mm[Hg] [facility] Diastolic blood pressure 2021-02-12 20:07:00 83 mm[Hg] [facility] Heart rate 2021-02-12 20:07:00 82 /min [facility] Body temperature 2021-02-12 20:07:00 36.28 [facility] Body height 2021-02-12 20:07:00 172.7 cm [facility] Body weight 2021-02-12 20:07:00 88.508 kg [facility] BMI 2021-02-12 20:07:00 29.67 kg/m2 [facility] Systolic blood pressure 2020-09-25 20:08:00 113 mm[Hg] [facility] Diastolic blood pressure 2020-09-25 20:08:00 75 mm[Hg] [facility] Heart rate 2020-09-25 20:08:00 76 /min [facility] Body temperature 2020-09-25 20:08:00 36.33 [facility] Body height 2020-09-25 20:08:00 172.7 cm [facility] Body weight 2020-09-25 20:08:00 99.066 kg [facility] BMI 2020-09-25 20:08:00 33.21 kg/m2 [facility] Systolic blood pressure 2020-08-07 09:33:00 116 mm[Hg] Location: LUE; Position: Sitting [facility] Diastolic blood pressure 2020-08-07 09:33:00 76 mm[Hg] Location: LUE; Position: Sitting [facility] Body height 2020-08-07 09:33:00 68 [in_us] [facility] Weight 2020-08-07 09:33:00 234.0625 [lb_av] [facility] Body mass index (BMI) [Ratio] 2020-08-07 09:33:00 35.59 kg/m2 [facility] Body temperature 2020-08-07 09:33:00 97.2 [degF] Meth od: Temporal [facility] Heart Rate 2020-08-07 09:33:00 67 /min [facility] Systolic blood pressure 2020-07-03 11:12:00 132 mm[Hg] Location: LUE; Position: Sitting [facility] Diastolic blood pressure 2020-07-03 11:12:00 72 mm[Hg] Location: LUE; Position: Sitting [facility] Body height 2020-07-03 11:12:00 68 [in_us] [facility] Weight 2020-07-03 11:12:00 249 [lb_av] [facility] Body mass index (BMI) [Ratio] 2020-07-03 11:12:00 37.86 kg/m2 [facility] Body temperature 2020-07-03 11:12:00 97.4 [degF] Meth od: Temporal [facility] Heart Rate 2020-07-03 11:12:00 91 /min [facility] Heart Rate 2020-06-12 13:11:00 87 /min [facility] Systolic blood pressure 2020-06-12 13:11:00 122 mm[Hg] Location: LUE; Position: Sitting [facility] Diastolic blood pressure 2020-06-12 13:11:00 78 mm[Hg] Location: LUE; Position: Sitting [facility] Body height 2020-06-12 13:11:00 68 [in_us] [facility] Weight 2020-06-12 13:11:00 265 [lb_av] [facility] Body mass index (BMI) [Ratio] 2020-06-12 13:11:00 40.29 kg/m2 [facility] Body temperature 2020-06-12 13:11:00 97.8 [degF] Meth od: Temporal [facility] Systolic blood pressure 2020-05-01 10:48:00 117 mm[Hg] Location: LUE; Position: Sitting [facility] Diastolic blood pressure 2020-05-01 10:48:00 71 mm[Hg] Location: LUE; Position: Sitting [facility] Body height 2020-05-01 10:48:00 68 [in_us] [facility] Weight 2020-05-01 10:48:00 259 [lb_av] [facility] Body mass index (BMI) [Ratio] 2020-05-01 10:48:00 39.38 kg/m2 [facility] Body temperature 2020-05-01 10:48:00 98.1 [degF] Meth od: Temporal [facility] Heart Rate 2020-05-01 10:48:00 79 /min [facility] Systolic blood pressure 2020-04-24 11:07:00 108 mm[Hg] Location: LUE; Position: Sitting [facility] Diastolic blood pressure 2020-04-24 11:07:00 67 mm[Hg] Location: LUE; Position: Sitting [facility] Body height 2020-04-24 11:07:00 68 [in_us] [facility] Weight 2020-04-24 11:07:00 255.5625 [lb_av] [facility] Body mass index (BMI) [Ratio] 2020-04-24 11:07:00 38.86 kg/m2 [facility] Body temperature 2020-04-24 11:07:00 98.2 [degF] Meth od: Temporal [facility] Heart Rate 2020-04-24 11:07:00 76 /min [facility] Systolic blood pressure 2020-04-17 15:23:00 115 mm[Hg] Location: LUE; Position: Sitting [facility] Diastolic blood pressure 2020-04-17 15:23:00 77 mm[Hg] Location: LUE; Position: Sitting [facility] Body height 2020-04-17 15:23:00 68 [in_us] [facility] Weight 2020-04-17 15:23:00 259.5625 [lb_av] [facility] Body mass index (BMI) [Ratio] 2020-04-17 15:23:00 39.47 kg/m2 [facility] Body temperature 2020-04-17 15:23:00 97 [degF] Meth od: Temporal [facility] Heart Rate 2020-04-17 15:23:00 76 /min [facility] Systolic blood pressure 2020-04-10 00:00:00 138 mm[Hg] Location: LUE; Position: Sitting [facility] Diastolic blood pressure 2020-04-10 00:00:00 84 mm[Hg] Location: LUE; Position: Sitting [facility] Body height 2020-04-10 00:00:00 68 [in_us] [facility] Weight 2020-04-10 00:00:00 259.0625 [lb_av] [facility] Body mass index (BMI) [Ratio] 2020-04-10 00:00:00 39.39 kg/m2 [facility] Body temperature 2020-04-10 00:00:00 97.8 [degF] Meth od: Temporal [facility] Heart Rate 2020-04-10 00:00:00 80 /min [facility] Systolic blood pressure 2020-04-03 13:07:00 122 mm[Hg] Location: LUE; Position: Sitting [facility] Diastolic blood pressure 2020-04-03 13:07:00 84 mm[Hg] Location: LUE; Position: Sitting [facility] Body height 2020-04-03 13:07:00 68 [in_us] [facility] Weight 2020-04-03 13:07:00 260.375 [lb_av] [facility] Body mass index (BMI) [Ratio] 2020-04-03 13:07:00 39.59 kg/m2 [facility] Body temperature 2020-04-03 13:07:00 97.6 [degF] Meth od: Temporal [facility] Heart Rate 2020-04-03 13:07:00 87 /min [facility] Systolic blood pressure 2020-03-27 10:49:00 121 mm[Hg] Location: LUE; Position: Sitting [facility] Diastolic blood pressure 2020-03-27 10:49:00 79 mm[Hg] Location: LUE; Position: Sitting [facility] Body height 2020-03-27 10:49:00 68 [in_us] [facility] Weight 2020-03-27 10:49:00 261.5 [lb_av] [facility] Body mass index (BMI) [Ratio] 2020-03-27 10:49:00 39.76 kg/m2 [facility] Body temperature 2020-03-27 10:49:00 96.1 [degF] Meth od: Temporal [facility] Heart Rate 2020-03-27 10:49:00 76 /min [facility] Systolic blood pressure 2020-03-20 13:58:00 112 mm[Hg] Location: LUE; Position: Sitting [facility] Diastolic blood pressure 2020-03-20 13:58:00 77 mm[Hg] Location: LUE; Position: Sitting [facility] Body height 2020-03-20 13:58:00 68 [in_us] [facility] Weight 2020-03-20 13:58:00 261.125 [lb_av] [facility] Body mass index (BMI) [Ratio] 2020-03-20 13:58:00 39.7 kg/m2 [facility] Body temperature 2020-03-20 13:58:00 97.5 [degF] Meth od: Temporal [facility] Heart Rate 2020-03-20 13:58:00 81 /min [facility] Systolic blood pressure 2020-03-13 10:14:00 115 mm[Hg] Location: LUE; Position: Sitting [facility] Diastolic blood pressure 2020-03-13 10:14:00 72 mm[Hg] Location: LUE; Position: Sitting [facility] Body height 2020-03-13 10:14:00 68 [in_us] [facility] Weight 2020-03-13 10:14:00 261.3125 [lb_av] [facility] Body mass index (BMI) [Ratio] 2020-03-13 10:14:00 39.73 kg/m2 [facility] Body temperature 2020-03-13 10:14:00 98 [degF] Method: Or al [facility] Heart Rate 2020-03-13 10:14:00 81 /min [facility] Systolic blood pressure 2020-03-06 09:50:00 128 mm[Hg] Location: LUE; Position: Sitting [facility] Diastolic blood pressure 2020-03-06 09:50:00 84 mm[Hg] Location: LUE; Position: Sitting [facility] Body height 2020-03-06 09:50:00 68 [in_us] [facility] Weight 2020-03-06 09:50:00 262.5 [lb_av] [facility] Body mass index (BMI) [Ratio] 2020-03-06 09:50:00 39.91 kg/m2 [facility] Body temperature 2020-03-06 09:50:00 97.6 [degF] Method: O ral [facility] Heart Rate 2020-03-06 09:50:00 82 /min [facility] Systolic blood pressure 2020-02-28 12:55:00 115 mm[Hg] Location: LUE; Position: Sitting [facility] Diastolic blood pressure 2020-02-28 12:55:00 78 mm[Hg] Location: LUE; Position: Sitting [facility] Body height 2020-02-28 12:55:00 68 [in_us] [facility] Weight 2020-02-28 12:55:00 264 [lb_av] [facility] Body mass index (BMI) [Ratio] 2020-02-28 12:55:00 40.14 kg/m2 [facility] Heart Rate 2020-02-28 12:55:00 97 /min Location : L Radial; [facility] Systolic blood pressure 2020-02-28 09:49:00 99 mm[Hg] Location: LUE; Position: Sitting [facility] Diastolic blood pressure 2020-02-28 09:49:00 65 mm[Hg] Location: LUE; Position: Sitting [facility] Body height 2020-02-28 09:49:00 68 [in_us] [facility] Weight 2020-02-28 09:49:00 263.375 [lb_av] [facility] Body mass index (BMI) [Ratio] 2020-02-28 09:49:00 40.05 kg/m2 [facility] Body temperature 2020-02-28 09:49:00 98 [degF] Meth od: Temporal [facility] Heart Rate 2020-02-28 09:49:00 87 /min [facility] Systolic blood pressure 2020-02-14 13:47:00 110 mm[Hg] Location: LUE; Position: Sitting [facility] Diastolic blood pressure 2020-02-14 13:47:00 73 mm[Hg] Location: LUE; Position: Sitting [facility] Body height 2020-02-14 13:47:00 68 [in_us] [facility] Weight 2020-02-14 13:47:00 264.375 [lb_av] [facility] Body mass index (BMI) [Ratio] 2020-02-14 13:47:00 40.2 kg/m2 [facility] Body temperature 2020-02-14 13:47:00 98.3 [degF] Meth od: Temporal [facility] Heart Rate 2020-02-14 13:47:00 92 /min [facility] Systolic blood pressure 2020-02-07 09:52:00 137 mm[Hg] Location: LUE; Position: Sitting [facility] Diastolic blood pressure 2020-02-07 09:52:00 83 mm[Hg] Location: LUE; Position: Sitting [facility] Body height 2020-02-07 09:52:00 68 [in_us] [facility] Weight 2020-02-07 09:52:00 266 [lb_av] [facility] Body mass index (BMI) [Ratio] 2020-02-07 09:52:00 40.45 kg/m2 [facility] Body temperature 2020-02-07 09:52:00 97.7 [degF] Meth od: Temporal [facility] Heart Rate 2020-02-07 09:52:00 93 /min [facility] Procedures Procedure Date / Time Performed Performing Clinicia n Source COMPREHENSIVE METABOLIC PANEL 2024-06-07 17:17:00 [facility] LIPID PANEL 2024-06-07 17:17:00 Alden Galanie [facility] He alth VITAMIN B12 2024-06-07 17:17:00 Alden Galanie [facility] FOLATE 2024-06-07 17:17:00 Alden Galanestrella [facility] HEMOGLOBIN A1C 2024-06-07 17:17[facility] 2024-06-07 17:17:00 Adama Jenn[facility] VITAMIN D 25 HYDROXY 2024-06-07 17:17:00 Adama Jenn[facility] PTH, INTACT AND CALCIUM 2024-06-07 17:17:00 Hill Galan [facility] IRON AND TIBC 2024-06-07 17:17:00 Alden Galanie [facility] H ealth TSH W/REFLEX TO FT4 2024-06-07 17:17:00 [facility] [Q] QUESTASSURED 25-OH VIT D, (D2,D3), LC/MS/MS 2020-04-10 00:00:00 [facility] [QL] HEMOGLOBIN A1c 2020-04-10 00:00:00 [facility] [QL] LIPID PANEL 2020-04-10 00:00:00 [facility] [QL] PTH, INTACT (WITHOUT CALCIUM) 2020-04-10 00:00:00 [facility] [QL] TSH, 3RD GENERATION W/REFLEX TO FT4 2020-04-10 00:00:00 [facility] [QL] VITAMIN A (RETINOL) 2020-04-10 00:00:00 [facility] [QL] VITAMIN B1, WHOLE BLOOD 2020-04-10 00:00:00 [facility] [QL] VITAMIN E (TOCOPHEROL) 2020-04-10 00:00:00 [facility] History of Riley-en-Y gastric bypass [facility] Encounters Start Date/Time End Date/Time Encounter Type Admission Type Attending Clinicians Care Facility Care Department Encounter ID Source 2022-05-14 06:22:17 Outpatient [facility] [id number] [facility] 2021-05-08 01:04:10 Outpatient HILLARY FRASER [facility] [id number] [facility] 2021-02-05 11:44:28 Outpatient HILLARY FRASER [facility] [address] [facility] 2021-01-23 15:24:33 Outpatient KARLA SALAZAR [facility] [id number] [facility] 2020-09-25 15:27:54 Outpatient KARLA SALAZAR [facility] [id number] [facility] 2020-08-17 03:45:52 Outpatient KARLA SALAZAR [facility] [id number] [facility] 2020-08-02 11:33:34 Outpatient FIGUEROA FRASERPATRICIADrake [facility] [address] [facility] 2024-09-06 09:45:00 2024-09-06 09:45:00 Outpatient KARLA SALAZAR [facility] [id number] [facility] 2024-06-07 09:00:00 2024-06-07 09:31:50 Office Visit Karla Salazar [facility] 2 [id number] [facility] 2024-01-20 14:30:00 2024-01-20 14:30:00 Outpatient VIOLETAKENNETH MARICRUZ ORR [id number] Maricruz Mora 2022-05-20 10:30:00 2022-05-20 10:30:00 Outpatient KARLA SALAZAR [facility] [id number] [facility] 2021-11-12 09:30:00 2021-11-12 09:30:00 Office Visit Karla Salazar [facility] 2 [id number] [facility] 2021-11-10 00:00:00 2021-11-10 00:00:00 Telephone Cui, Karime Cui, Karime [facility] 2 [id number] [facility] 2021-11-06 00:00:00 2021-11-06 00:00:00 Telephone Karime Cui Ivonne [facility] 2 [id number] [id number] [facility] 2021-02-19 00:00:00 2021-02-19 00:00:00 Refill Karla Salazar [facility] [id number] [id number] [facility] 2021-02-12 14:30:55 2021-02-12 15:34:31 Office Visit Karla Salazar [facility] 2 1..114 [id number] [facility] 2021-02-06 11:48:00 2021-02-06 23:59:00 Outpatient HILLARY FRASER [facility] [address] [facility] 2021-01-27 00:00:00 2021-01-27 00:00:00 Orders Only Donna [place] Maria [facility] 1.114 [id number] [facility] 2021-01-21 20:50:00 2021-01-23 13:45:00 Inpatient E CATHY NEGRETE [facility] [address] [facility] 2021-01-22 16:29:33 2021-01-22 17:29:33 EXT [facility] OP MARIE KARLA EXT [facility] LOCATION 1..114 [id number] [facility] 2021-01-22 16:29:33 2021-01-22 17:29:33 EXT [facility] OP Karla Salazar EXT [facility] LOCATION [id number] [id number] [facility] 2020-09-25 14:50:53 2020-09-25 15:26:53 Office Visit Karla Salazar [facility] 2 [id number] [facility] 2020-08-07 09:30:00 2020-08-07 09:30:00 Appointmen t; KARLA SALAZAR M.D. TRAHAN, MICHAEL, M.D. [facility] [id number] [facility] 2020-08-05 09:00:00 2020-08-05 09:00:00 Appointmen t; HEP, CLINIC HEP, [facility]IC [facility] [id number] [facility] 2020-07-03 11:15:00 2020-07-03 11:15:00 Appointmen t; KARLA SALAZAR M.D. TRAHAN, MICHAEL, M.D. [facility] [id number] [facility] 2020-06-24 11:34:00 2020-06-25 11:10:00 Inpatient U KARLA SALAZAR [facility] [id number] [facility] 2020-06-24 09:00:00 2020-06-24 09:00:00 Appointmen t; KARLA SALAZAR M.D. TRAHAN, MICHAEL, M.D. [facility] [id number] [facility] 2020-06-12 13:45:00 2020-06-12 13:45:00 Appointmen t; KARLA SALAZAR M.D. TRAHAN, MICHAEL, M.D. [facility] [id number] [facility] 2020-05-06 09:57:00 2020-05-06 23:59:00 Outpatient HILLARY FRASER [facility] [address] [facility] 2020-05-06 10:15:00 2020-05-06 10:15:00 Appointmen t; HEP, CLINIC HEP, [facility] [id number] [facility] 2020-05-01 10:00:00 2020-05-01 10:00:00 Appointmen t; KARLA SALAZAR M.D. TRAHAN, MICHAEL, M.D. [facility] General [facility] [id number] [facility] 2020-04-24 11:30:00 2020-04-24 11:30:00 Appointmen t; KARLA SALAZAR M.D. TRAHAN, MICHAEL, M.D. [facility] [facility] [id number] ID Physici ans 2020-04-17 09:30:00 2020-04-17 09:30:00 Appointmen t; KARLA SALAZAR M.D. TRAHAN, MICHAEL, M.D. [facility] [id number] ID Physici ans 2020-04-10 11:15:00 2020-04-10 11:15:00 Appointmen t; KARLA SALAZAR M.D. TRAHAN, MICHAEL, M.D. [facility] [id number] ID Physici ans 2020-04-03 13:15:00 2020-04-03 13:15:00 Appointmen t; KARLA SALAZAR M.D. TRAHAN, MICHAEL, M.D. [facility] [id number] ID Physici ans 2020-03-27 10:00:00 2020-03-27 10:00:00 Appointmen t; KARLA SALAZAR M.D. TRAHAN, MICHAEL, M.D. [facility] [id number] ID Physici ans 2020-03-20 14:15:00 2020-03-20 14:15:00 Appointmen t; KARLA SALAZAR M.D. TRAHAN, MICHAEL, M.D. [facility] [id number] ID Physici ans 2020-03-19 13:00:00 2020-03-19 13:00:00 Appointmen t; SE, ECHO SE, ECHO [facility] [id number] ID Physici ans 2020-03-19 10:00:00 2020-03-19 10:00:00 Appointmen t; SE, NUCLEAR SE, NUCLEAR [facility] [id number] ID Physici ans 2020-03-13 10:15:00 2020-03-13 10:15:00 Appointmen t; KARLA SALAZAR M.D. TRAHAN, MICHAEL M.D. [facility] [id number] ID Physici ans 2020-03-06 09:45:00 2020-03-06 09:45:00 Appointmen t; KARLA SALAZAR M.D. TRAHAN, MICHAEL, M.D. [facility] [id number] ID Physici ans 2020-02-28 13:00:00 2020-02-28 13:00:00 Appointmen t; NIKOLAS ROCK M.D. TRANG, AMANDA, M.D. [facility] [id number] ID Physici ans 2020-02-28 10:00:00 2020-02-28 10:00:00 Appointmen t; KARLA SALAZAR M.D. TRAHAN, MICHAEL, M.D. [facility] [id number] ID Physici ans 2020-02-26 09:00:00 2020-02-26 09:00:00 Appointmen t; HEP, CLINIC HEP, CLINIC [facility] [id number] ID Physici ans 2020-02-22 14:30:00 2020-02-22 14:30:00 Appointmen t; MHH, GASTRO MHH, GASTRO [facility] [id number] ID Physici ans 2020-02-15 09:00:00 2020-02-15 09:00:00 Outpatient KARLA SALAZAR [facility] [address] [facility] 2020-02-14 14:00:00 2020-02-14 14:00:00 Appointmen t; KARLA SALAZAR M.D. TRAHAN, MICHAEL, M.D. [facility] [id number] ID Physici ans 2020-02-07 10:00:00 2020-02-07 10:00:00 Appointmen t; KARLA SALAZAR M.D. TRAHAN, MICHAEL, M.D. [facility] [id number] ID Physici ans 2019-12-28 09:00:00 2019-12-28 09:00:00 Appointmen t; HILLARY FRASER APRN THOMAS, GLENTY, APRN [facility] [id number] ID Physici ans Results Test Description Test Time Test Comments Results Result Co mments Source [facility] [id number] 19:10:25* Test Item Value Reference Range Interpretation Comme nts FOLATE, SERUM (test code = 2284-8) 7.2 ng/mL ? Reference Range ? Low: ? <3.4 ? Borderline: ? ?3.4-5.4 ? Normal: ?>5.4. [facility] SystemHemoglobin [id number] 19:10:25* Test Item Value Reference Range Interpretation Comme [facility] HEMOGLOBIN A1c (test code = 4548-4) 5.4 See_Comment For the purpose of screening for the presence ofdiabetes:.<5.7% ? ? ? Consistent with the absence of diabetes5.7-6.4% ? ?Consistent with increased risk for diabetes ?(prediabetes)> or =6.5% ?Consistent with diabetes.This assay result is consistent with a decreased riskof diabetes..Currently, no consensus exists regarding use ofhemoglobin A1c for diagnosis of diabetes in children..According to [place] Diabetes Association (ADA)guidelines, hemoglobin A1c <7.0% represents optimalcontrol in non- diabetic patients. Differentmetrics may apply to specific patient populations. Standards of Medical Care in Diabetes(ADA).. [Automated message] The system which generated this result transmitted reference range: <5.7 % of total Hgb. The reference range was not used to interpret this result as normal/abnormal. [facility] SystemIron and [id number] 19:10:25* Test Item Value Reference Range Interpretation Comme nts IRON, TOTAL (test code = 2498-4) 46 45-160 IRON BINDING CAPACITY (test code = 2500-7) 504 250-450 H % SATURATION (test code = 2502-3) 9 16-45 L Lab Interpretation (test cod e = 21058-0) Abnormal [facility] System[facility] W/REFLEX TO [id number] 19:10:25* Test Item Value Reference Range Interpretation Comme nts TSH W/REFLEX TO FT4 (test code = 3016-3) 3.08 mIU/L ?Re ference Range. ?> or = 20 Years ?0.40-4.50. ? Ranges ?First trimester ? ?0.26-2.66 ?Second trimester ? 0.55-2.73 ?Third trimester ? ?0.43-2.91 ID HealthVitamin D 25 [id number] 19:10:25* Test Item Value Reference Range Interpretation Comme nts VITAMIN D,25-OH,TOTAL,IA (test code = 1988-06) 18 ng/mL 30-100 L Vitamin D S tatus ? 25-OH Vitamin D:.Deficiency: ?<20 ng/mLInsufficiency: ? 20 - 29 ng/mLOptimal: ? > or = 30 ng/mL.For 25-OH Vitamin D testing on patients on D2-supplementation and patients for whom quantitation of D2 and D3 fractions is required, the QuestAssureD(TM)25-OH VIT D, (D2,D3), LC/MS/MS is recommended: order code 31463 (patients >2yrs)..See Note 1.Note 1.For additional information, please refer to http://education.[employer]/faq/ GCS954 (This link is being provided for informational/educati onal purposes only.) Lab Interpretation (test code = 71105-2) Abnormal ID HealthVitamin [id number] 19:10:25* Test Item Value Reference Range Interpretation Comme [facility] VITAMIN B12 (test code = 2132-9) 484 pg/mL 200-1100 [facility] SystemComprehensive metabolic [id number] 19:10:24* Test Item Value Reference Range Interpretation Comme nts GLUCOSE (test code = 2345-7) 106 mg/dL 65-99 H . ? Fast ing reference interval.For someone without known diabetes, a glucose valuebetween 100 and 125 mg/dL is consistent withprediabetes and should be confirmed with afollow-up test.. UREA NITROGEN (BUN) (test code = 3094-0) 14 mg/dL 7-25 CREATININE (test code = 2160-0) 0.67 mg/dL 0.50-1.03 EGFR (test code = 667192620) 103 See_Comment [Automated i-Nalysis] The system which generated this result transmitted reference range: > OR = 60 mL/min/1.73m2. The reference range was not used to interpret this result as normal/abnormal. BUN/CREATININE RATIO (test code = 3097-3) SEE NOTE: 10-01 ? Not Repor reba: BUN and Creatinine are within ? reference range.. SODIUM (test code = 2951-2) 140 mmol/L 135-146 POTASSIUM (test code = 2823-3) 4.3 mmol/L 3.5-5.3 CHLORIDE (test code = 5-0) 101 mmol/L 98-110 CARBON DIOXIDE (test code = 2027-9) 29 mmol/L 20-32 CALCIUM (test code = 74897-2) 10.1 mg/dL 8.6-10.4 PROTEIN, TOTAL (test code = 2885-2) 7.8 g/dL 6.1-8.1 ALBUMIN (test code = 1751-7) 4.8 g/dL 3.6-5.1 GLOBULIN (test code = 84880-3) 3 1.9-3.7 ALBUMIN/GLOBULIN RATIO (test code = 1759-0) 1.6 1.0-2.5 BILIRUBIN, TOTAL (test code = 1974-2) 0.4 mg/dL 0.2-1.2 ALKALINE PHOSPHATASE (test code = 6768-6) 78 U/L 37-153 AST (test code = 1920-8) 22 U/L 10-35 ALT (test code = 1742-6) 17 U/L 6-29 Lab Interpretation (test code = 21180-7) Abnormal [facility] HealthLipid [id number] 19:10:24* Test Item Value Reference Range Interpretation Comme nts CHOLESTEROL, TOTAL (test code = 2092-3) 336 mg/dL <=200 H HDL CHOLESTEROL (test code = 2084-9) 165 mg/dL See_Comment [Automated i-Nalysis] The system which generated this result transmitted reference range: > OR = 50. The reference range was not used to interpret this result as normal/abnormal. TRIGLYCERIDES (test code = 2571-8) 88 mg/dL <=150 LDL-CHOLESTEROL (test code = 94834-5) 152 mg/dL (calc) H Reference range: <100.Desirable range <100 mg/dL for primary prevention; ?<70 mg/dL for patients with CHD or diabetic patients with > or = 2 CHD risk factors..LDL-C is now calculated using the Víctor calculation, which is a validated novel method providing better accuracy than the Friedewald equation in the estimation of LDL-C. Raimundo ELIZONDO et al. DUNIA. 2013;310(19): 2278-4193 (http://education.[employer]/f aq/HHX996) CHOL/HDLC RATIO (test code = 9830-1) 2 See_Comment [Automated messa ge] The system which generated this result transmitted reference range: <5.0 (calc). The reference range was not used to interpret this result as normal/abnormal. NON HDL CHOLESTEROL (test code = 97772-3) 171 See_Comment H For patien ts with diabetes plus 1 major ASCVD risk factor, treating to a non-HDL-C goal of <100 mg/dL (LDL-C of <70 mg/dL) is considered a therapeutic option. [Automated message] The system which generated this result transmitted reference range: <130 mg/dL (calc). The reference range was not used to interpret this result as normal/abnormal. Lab Interpretation (test code = 12469-9) Abnormal [facility], intact and [id number] 19:10:24* Test Item Value Reference Range Interpretation Comments PARATHYROID HORMONE, INTACT (test code = 2731-8) 34 pg/mL 16-77 .Interpretive Gu rudolph ? ?Intact PTH ? Calcium ? -------Normal Parathyroid ? ?Normal ? NormalHypoparathyroidism ? ?Low or Low Normal ? ?LowHyperparathyroidism ? Primary ?Normal or High ? ? ? High ? Secondary ?High ? Normal or Low ? Tertiary ? High ? HighNon-Parathyroid ? Hypercalcemia ? ? ?Low or Low Normal ? ?High. CALCIUM (test code = 66058-5) 10.1 mg/dL 8.6-10.4 [facility][QL] LIPID [id number] 10:53:00* Test Item Value Reference Range Interpretation Comme nts CHOLESTEROL, TOTAL; Above High Threshold (test code = 2093-3) 241 mg/dl <200 HDL CHOLESTEROL; Normal (test code = 2085-9) 69 mg/dl > OR = 50 N TRIGLYCERIDES; Normal (test code = 2571-8) 101 mg/dl <150 N LDL-CHOLESTEROL; Above High Threshold (test code = 18800-6) 151 {MG/DL EYAL} Reference range: <100 Desirable range <100 mg/dL for primary prevention; <70 mg/dL for patients with CHD or diabetic patients with > or = 2 CHD risk factors. LDL-C is now calculated using the Víctor calculation, which is a validated novel method providing better accuracy than the Friedewald equation in the estimation of LDL-C. Raimundo ELIZONDO et al. DUNIA. 2013;310(19): 3070-2686 (http://education.[employer]/f aq/FVT210) CHOL/HDLC RATIO (test code = CHOL/HDLC RATIO) 3.5 {CALC} <5.0 N NON HDL CHOLESTEROL (test code = NON HDL CHOLESTEROL) 172 {MG/DL EYAL} <130 For patients with diabetes plus 1 major ASCVD risk factor, treating to a non-HDL-C goal of <100 mg/dL (LDL-C of <70 mg/dL) is considered a therapeutic option. [facility][QL] PTH, INTACT (WITHOUT CALCIUM)2020-04-23 10:53:00* Test Item Value Reference Range Interpretation Comme nts PARATHYROID HORMONE, INTACT (test code = PARATHYROID HORMONE, INTACT) 25 pg/ml 14-64 N Interpretive Gu rudolph Intact PTH Calcium -------Normal Parathyroid Normal NormalHypoparathyroidism Low or Low Normal LowHyperparathyroidism Primary Normal or High High Secondary High Normal or Low Tertiary High HighNon-Parathyroid Hypercalcemia Low or Low Normal High [facility][QL] VITAMIN E (TOCOPHEROL)2020-04-23 10:53:00* Test Item Value Reference Range Interpretation Comme nts ALPHA-TOCOPHEROL (test code = ALPHA-TOCOPHEROL) 13.2 mg/L Reference Rang e 5.7-19.9 mg/L Levels of alpha-tocopherol <5 mg/L are consistent with Vitamin E deficiency in adults.Vitamin supplementation within 24 hours prior to blood draw may affect the accuracy of results. This test was developed and its analytical performance characteristics have been determined by [facility]. It has not been cleared or approved by theFDA. This assay has been validated pursuant to the CLIA regulations and is used for clinical purposes. CTMS-JFOEQ-DOCJQS JENNA (test code = QRYK-RDLUW-DTGNVS JENNA) 2.2 mg/L <4.4 This test was de veloped and its analytical performance characteristics have been determined by [facility]. It has not been cleared or approved by theFDA. This assay has been validated pursuant to the CLIA regulations and is used for clinical purposes. [facility][QL] TSH, 3RD GENERATION W/REFLEX TO [id number] 10:53:00* Test Item Value Reference Range Interpretation Comme nts TSH, 3RD GENERATION W/REFLEX TO FT4 (test code = TSH, 3RD GENERATION W/REFLEX TO FT4) 3.49 {MIU/L} N Reference Range > or = 20 Years 0.40-4.50 Ranges First trimester 0.26-2.66 Second trimester 0.55-2.73 Third trimester 0.43-2.91 [facility][QL] VITAMIN B1, WHOLE [id number] 10:53:00* Test Item Value Reference Range Interpretation Comme nts VITAMIN B1, WHOLE BLOOD (test code = VITAMIN B1, WHOLE BLOOD) 121 nmol/L 78-185 Vitamin suppleme ntation within 24 hours prior toblood draw may affect the accuracy of results. This test was developed and its analytical performance characteristics have been determined by [facility]. It has not been cleared or approved by theFDA. This assay has been validated pursuant to the CLIA regulations and is used for clinical purposes. [facility][QL] HEMOGLOBIN [id number] 10:53:00* Test Item Value Reference Range Interpretation Comme nts HEMOGLOBIN A1c; Normal (test code = 4548-4) 5.6 {% of total} <5.7 N For the purpose of screening for the presence ofdiabetes: <5.7% Consistent with the absence of diabetes5.7-6.4% Consistent with increased risk for diabetes (prediabetes)> or =6.5% Consistent with diabetes This assay result is consistent with a decreased riskof diabetes. Currently, no consensus exists regarding use ofhemoglobin A1c for diagnosis of diabetes in children. According to [place] Diabetes Association (ADA)guidelines, hemoglobin A1c <7.0% represents optimalcontrol in non- diabetic patients. Differentmetrics may apply to specific patient populations. Standards of Medical Care in Diabetes(ADA). [facility][QL] VITAMIN A (RETINOL)2020-04-23 10:53:00* Test Item Value Reference Range Interpretation Comme nts VITAMIN A (test code = VITAMIN A) 33 {mcg/dl} 38-98 Clin Chem Vo l. 34.No.8. [id number]. 1998Vitamin supplementation within 24 hours prior to blood draw may affect the accuracy of results. This test was developed and its analytical performance characteristics have been determined by [facility]. It has not been cleared or approved by theFDA. This assay has been validated pursuant to the CLIA regulations and is used for clinical purposes. [facility][Q] QUESTASSURED 25-OH VIT D, (D2,D3), LC/MS/[id number] 10:53:00 * Test Item Value Reference Range Interpretation Comme [facility] VITAMIN D, 25-OH, TOTAL (test code = VITAMIN D, 25-OH, TOTAL) 33 ng/ml 30-100 (Note) Vitamin D , 25-Hydroxy reports concentrations of two common forms, 25-OHD2 and 25-OHD3. 25-OHD3 indicates both endogenous production and supplementation. 25-OHD2 is an indicator of exogenous sources such as diet or supplementation. Therapy is based on measurement of Total 25-OHD, with levels <20 ng/mL indicative of Vitamin D deficiency, while levels between 20 ng/mL and 30 ng/mL suggest insufficiency. Optimal levels are > or = 30 ng/mL. Vitamin D is fat-soluble and therefore inadvertent or intentional ingestion of excessively high amounts could be toxic. Studies in children and adults suggest blood levels would need to exceed 150 ng/mL before there is any concern. Rocio MF, Arminda NC, Yaa LANDIS, et al. Evaluation, treatment and prevention of vitamin D deficiency: an Endocrine Society clinical practice guideline. J Clin Endocrinol Metab. 2011;96(7):1911-30. For additional information, please refer to http://[employer]/faq/BOL729 VITAMIN D, 25-OH, D3 (test code = VITAMIN D, 25-OH, D3) 33 ng/ml Reference range: Not established VITAMIN D, 25-OH, D2 (test code = VITAMIN D, 25-OH, D2) <4.0 (Note)Reference range: Not established This test was developed and its analytical performancecharacteristics have been determined by [facility]. It has not beencleared or approved by the US Food and Drug Administration. Thisassay has been validated pursuant to the CLIA regulation and is usedfor Clinical purposes.MDed [id number] [place] [address],[address] [place] [address] [phone] Chaump, MDSee Note 1 Note 1 For additional information, please refer to http://[employer]/faq/GPH675 (This link is being provided for informational/educational purposes only.) [facility]
[2024-07-03] MEDS ORDERED: ONDANSETRON 4 MG/2 ML VIAL ONE (08:15)
[2024-07-03] MEDS ORDERED: ASPIRIN 81 MG CHEWABLE TABLET ONE (08:16)
[2024-07-03] MEDS ORDERED: MORPHINE 4 MG/ML SYR ONE (08:16)
--- NOTE | 2024-07-03 08:45 | RAD REPORT ---
EXAM:Extremity Venous Uni Ltd HISTORY: Left leg pain TECHNIQUE: Sonographic evaluation left lower extremity performed.Grayscale, color and spectral analys is performed on all vessels COMPARISON: 2019 . FINDINGS: Echogenic material having the appearance of a subacute thrombus left popliteal vein. The vein is part ially compressible left common femoral, superficial femoral, greater saphenous, and posterior tibial veins are compressible and demo nstrate augmentation. Doppler demonstrates good flow. 5 x 1 cm London's cyst cyst. IMPRESSION: There appears to be subacute thrombus left popliteal vein
[2024-07-03 08:47] LABS: Absolute Monocytes 0.3 K/uL (0.1-1.3); Absolute Neutrophil 2.5 K/uL (1.8-8.0); Basophils % 0.8 % (0-1.3); Hematocrit 35.4 % (36.0-45.0); Hemoglobin 11.3 g/dL (12.0-15.0); Lymphocytes % 25.3 % (15.3-44.8); MCH 24.3 pg (27.0-35.0); MCHC 32.1 g/dL (32.0-36.0); MCV 75.9 fL (80-100); Monocytes % 7.2 % (3.3-12.3); Neutrophils % 65.7 % (41.7-73.7); Nucleated Red Blood Cells % 0.1 % (0-0); Platelets 276 thou/uL (152-406); RBC Red Blood Cell Count 4.66 M/uL (3.86-4.86); Red Cell Distribution Width 18.7 % (12.1-15.2)
[2024-07-03 09:09] LABS: Anion Gap 6.7 mEq/L (5.0-15.0); Potassium 3.7 mEq/L (3.5-5.1); Troponin High Sensitivity 4.7 pg/mL (<58.9)
--- NOTE | 2024-07-03 09:40 | RAD REPORT ---
EXAMINATION: CTA CHEST PE CLINICAL INDICATION: Chest pain TECHNIQUE: 100 cc 370 Isovue administered intravenously. This examination was performed according to an angiographic protocol with 3D post-processing. This involves 3D reconstructions, MIPs, volume rendered images and/or shaded surface rendering. One or more of the following dose reduction techniqu es were used: Automated exposure control, adjustment of the mA and/or kV according to patient size, and/or iterative reconstruction. Unless otherwise specified, incidental findings do not require dedic ated imaging follow-up. [id number]. COMPARISON: No prior exam. FINDINGS: Linear low density within right segmental and interlobar pulmonary artery is compatible with old thro mbus. No acute pulmonary thrombus seen. No aortic aneurysm. No pleural effusion. No pericardial effusion. Lungs are clear. IMPRESSION: Small amount of old thrombus right pulmonary artery. No acute pulmonary embolism seen
--- NOTE | 2024-07-03 09:42 | RAD REPORT ---
Procedure: Chest Single View HISTORY: Chest pain COMPARISON: 2019 FINDINGS: The lungs appear clear of acute infiltrate. No significant pleural effusion noted. The heart is normal size. IMPRESSION: No acute abnormality is displayed.
--- NOTE | 2024-07-03 09:47 | EDPHYS ---
Physician Documentation [facility] Name: Imelda Quiñonez Age: 53 yrs Sex: Female : 1970 Arrival Date: 07/03/2024 Time: 07:24 Bed 19 Private MD: ED Physician Prasanna Moore HPI: 07/03 08:42 This 53 yrs old Female presents to ER via Ambulatory with complaints of Chest dr5 Pain, Left Leg Pain. 08:42 Onset: The symptoms/episode began/occurred acutely. Patient is a 53-year-old female dr5 with history of hypertension and depression and previous PE coming in with chest pain that occurred last night around 2 AM as well as chronic left lower leg pain calf swelling and pain. Patient is not currently on medications.. Historical: - Allergies: 07:47 No Known Allergies; iw - PMHx: 07:47 depressive disorder; Hypertension; iw - PSHx: 07:47 section; Cholecystectomy; Gastric Bypass; Ligation of fallopian tube; iw - Immunization history:: Adult Immunizations not up to date. - Infectious Disease History:: Denies. - Social history:: Smoking status: Patient reports the use of cigarette tobacco products, Reported history of juuling and/or vaping. ROS: 08:42 Constitutional: as per hpi dr5 Exam: 08:42 Constitutional: This is a well developed, well nourished patient who is awake, alert, dr5 and in no acute distress. Head/Face: Normocephalic, atraumatic. Eyes: Pupils equal round and reactive to light, extra-ocular motions intact. Lids and lashes normal. Conjunctiva and sclera are non-icteric and not injected. Cornea within normal limits. Periorbital areas with no swelling, redness, or edema. Neck: Trachea midline, no thyromegaly or masses palpated, and no cervical lymphadenopathy. Supple, full range of motion without nuchal rigidity, or vertebral point tenderness. No Meningismus. Chest/axilla: Normal chest wall appearance and motion. Nontender with no deformity. No lesions are appreciated. Cardiovascular: Regular rate and rhythm with a normal S1 and S2. Normal PMI, no JVD. No pulse deficits. Respiratory: Lungs have equal breath sounds bilaterally, clear to auscultation. No rales, rhonchi or wheezes noted. No increased work of breathing, no retractions or nasal flaring. Back: No spinal tenderness. No costovertebral tenderness. Full range of motion. Skin: Warm, dry with normal turgor. Normal color with no rashes, no lesions, and no evidence of cellulitis. Neuro: Awake and alert, GCS 15, oriented to person, place, time, and situation. Cranial nerves II-XII grossly intact. Motor strength 5/5 in all extremities. Sensory grossly intact. Cerebellar exam normal. Normal gait. 08:42 Musculoskeletal/extremity: Extremities: noted in the left leg: No tenderness to palpation. No swelling appreciated. NVI, Vital Signs: 07:45 BP 116 / 89; Pulse 81; Resp 16; Temp 98.1; Pulse Ox 100% on R/A; Weight 72.57 kg; iw Height 5 ft. 8 in. ; Pain 5/10; 09:53 BP 129 / 81; Pulse 70; Resp 16 S; Pulse Ox 99% on R/A; kc6 07:45 Body Mass Index 24.33 (72.57 kg, 172.72 cm) iw 07:45 Pain Scale: Adult iw MDM: 08:00 Medical Screening Exam initiated dr5 10:04 Differential diagnosis: viral Infection, DVT, PE, Electrolyte Abnormality. Data dr5 reviewed: vital signs, nurses notes. Consideration of Admission/Observation Escalation of care including admission/observation considered. Considered admission if patient found to have PE with right heart strain. . I considered the following discharge prescriptions or medication management in the emergency department Medications were administered in the Emergency Department. See MAR. Care significantly affected by the following chronic conditions: Hypertension, Depression, Previous PE. Care significantly affected by the following Social Determinants of Health: Poor access to healthcare and/or lack of insurance, Poor access to transportation, Problems related to employment. Counseling: I had a detailed discussion with the patient and/or guardian regarding the historical points, exam findings, and any diagnostic results supporting the discharge/admit diagnosis, the presence of at least one elevated blood pressure reading (>120/80) during this emergency department visit, lab results, radiology results, the need for outpatient follow up, for definitive care, a family practitioner, to return to the emergency department if symptoms worsen or persist or if there are any questions or concerns that arise at home. Medication response: morphine relieved the patient's pain. Symptoms have resolved. ED course: Patient found to have subacute DVT to left lower leg as well as London's cyst. Will start patient on Eliquis and have her follow-up with primary care doctor this week. CT chest did not reveal new PE and no right heart strain. Patient's labs and CT results printed out and given to patient to take to primary care doctor. Patient is feeling better without any pain on discharge. Ambulatory with steady gait. All questions answered. Strict ER precautions given. 07/03 08:11 Order name: Basic Metabolic Panel; Complete Time: 09:11 [facility] 07/03 08:11 Order name: CBC with Diff; Complete Time: 08:51 [facility] 07/03 08:11 Order name: D-Dimer; Complete Time: 08:57 [facility] 07/03 08:11 Order name: NT PRO-BNP; Complete Time: 09:11 [facility] 07/03 08:11 Order name: Troponin HS; Complete Time: 09:11 [facility] 07/03 08:11 Order name: US Extremity Venous Unilateral Ltd; Complete Time: 08:51 [facility] 07/03 08:11 Order name: XRAY Chest (1 view); Complete Time: 09:46 [facility] 07/03 08:51 Order name: CT Chest For PE Angio; Complete Time: 09:41 [facility] 07/03 08:11 Order name: Cardiac monitoring; Complete Time: 08:51 [facility] 07/03 08:11 Order name: EKG - Nurse/Tech; Complete Time: 08:12 [facility] 07/03 08:11 Order name: IV Saline Lock; Complete Time: 08:51 [facility] 07/03 08:11 Order name: Labs collected and sent; Complete Time: 08:51 [facility] 07/03 08:11 Order name: O2 Per Protocol; Complete Time: 08:12 [facility] 07/03 08:11 Order name: O2 Sat Monitoring; Complete Time: 08:12 [facility] EC:52 Rate is 81 beats/min. Rhythm is regular. QRS [place] is Normal. TN interval is normal at dr5 148 msec. QRS interval is normal at 88 msec. QT interval is normal at 388 msec. Administered Medications: 08:51 Drug: morphine IVP or IV 4 mg IVP once over 4 mins Route: IVP; Infused Over: 4 mins; kc6 Site: left antecubital; 09:52 Follow up: Response: No adverse reaction; Pain is decreased [facility] 08:51 Drug: Ondansetron IVP 4 mg IVP once; over 2 minutes Route: IVP; Site: left antecubital; kc6 09:52 Follow up: Response: No adverse reaction kc6 08:51 Drug: Aspirin PO Chewable Tablet 324 mg PO once; 81 mg tablets x 4 Route: PO; kc6 09:52 Follow up: Response: No adverse reaction kc6 10:01 Drug: Eliquis PO 10 mg PO once Route: PO; kc6 10:01 Follow up: Response: No adverse reaction kc6 Disposition Summary: 07/03/24 09:46 Discharge Ordered Notes: Location: Home dr5 Condition: Stable dr5 Diagnosis - Acute embolism and thrombosis of unspecified deep veins of left lower extremity dr5 Followup: dr5 - With: Emergency Department - When: As needed - Reason: Worsening of condition Followup: dr5 - With: Private Physician - When: 1 - 2 days - Reason: Recheck today's complaints, Continuance of care, Re-evaluation by your physician Discharge Instructions: - Discharge Summary Sheet dr5 - Deep Vein Thrombosis dr5 Forms: - Work release form dr5 - Medication Reconciliation Form dr5 - Patient Portal Instructions dr5 - Leadership Thank You Letter dr5 Prescriptions: - apixaban 5 mg Oral tablet - take 2 tablet ORAL route every 12 hours for 7 days 10 mg twice daily for 7 days dr5 followed by 5 mg twice daily.; 50 tablet; Refills: 0, Product Selection Permitted Addendum: 07/04/2024 11:21 I was immediately available for consultation during this patient's visit. I did not e c2 personally see the patient or discuss the patient with the EMBER. . Signatures: Dispatcher [employer] Mary Recio RN RN iw Christiane Tran RN RN kc6 Prasanna Moore MD MD ec2 Sean Khoury, JANITOR CLEANER-C JANITOR CLEANER-Cdr5 Corrections: (The following items were deleted from the chart) 07/03 08:11 08:11 BASIC METABOLIC PANEL+C.LAB.BRZ ordered. EDMS EDMS 08:11 08:11 CBC+H.LAB.BRZ ordered. EDMS EDMS 08:11 08:11 D-DIMER+COAG.LAB.BRZ ordered. EDMS EDMS 08:11 08:11 PROBNP+C.LAB.BRZ ordered. EDMS EDMS 08:11 08:11 Troponin High Sensitivity+C.LAB.BRZ ordered. EDMS EDMS 08:12 08:11 Chest Single View+RAD.RAD.BRZ ordered. EDMS EDMS
--- NOTE | 2024-07-03 09:47 | ER ---
Nurse's Notes [facility] Name: Imelda Quiñonez Age: 53 yrs Sex: Female : 1970 Arrival Date: 07/03/2024 Time: 07:24 Bed 19 Private MD: Diagnosis: Acute embolism and thrombosis of unspecified deep veins of left lower extremity Presentation: 07/03 07:45 Chief complaint: Patient states: chest pains intermittent since this morning and pain iw in left calf off and on for a few weeks. Coronavirus screen: At this time, the client does not indicate any symptoms associated with coronavirus-19. Ebola Screen: No symptoms or risks identified at this time. Initial Sepsis Screen: Does the patient meet any 2 criteria? No. Patient's initial sepsis screen is negative. Does the patient have a suspected source of infection? No. Patient's initial sepsis screen is negative. Risk Assessment: Do you want to hurt yourself or someone else? Patient reports no desire to harm self or others. Onset of symptoms was June 10, 2024. 07:45 Method Of Arrival: Ambulatory iw 07:45 Acuity: XIN 3 iw Historical: - Allergies: 07:47 No Known Allergies; iw - PMHx: 07:47 depressive disorder; Hypertension; iw - PSHx: 07:47 section; Cholecystectomy; Gastric Bypass; Ligation of fallopian tube; iw - Immunization history:: Adult Immunizations not up to date. - Infectious Disease History:: Denies. - Social history:: Smoking status: Patient reports the use of cigarette tobacco products, Reported history of juuling and/or vaping. Screenin:02 [facility] ED Fall Risk Assessment (Adult) History of falling in the last 3 months, kc6 including since admission No falls in past 3 months (0 pts) Confusion or Disorientation No (0 pts) Intoxicated or Sedated No (0 pts) Impaired Gait No (0 pts) Mobility Assist Device Used No (0 pt) Altered Elimination No (0 pt) Score/Fall Risk Level 0 - 2 = Low Risk Oriented to surroundings, Maintained a safe environment, Educated pt \T\ family on fall prevention, incl call for assistance when getting out of bed. Abuse screen: Denies threats or abuse. Denies injuries from another. Nutritional screening: No deficits noted. Tuberculosis screening: No symptoms or risk factors identified. Assessment: 09:53 General: Appears in no apparent distress. comfortable, well groomed, well developed, kc6 Behavior is calm, cooperative, appropriate for age. Pain: Complains of pain in chest and left leg Pain does not radiate. Neuro: Level of Consciousness is awake, alert, obeys commands, Oriented to person, place, time, situation, Appropriate for age. Cardiovascular: Reports chest pain, Capillary refill < 3 seconds Rhythm is regular. Vital Signs: 07:45 BP 116 / 89; Pulse 81; Resp 16; Temp 98.1; Pulse Ox 100% on R/A; Weight 72.57 kg; iw Height 5 ft. 8 in. ; Pain 5/10; 09:53 BP 129 / 81; Pulse 70; Resp 16 S; Pulse Ox 99% on R/A; kc6 07:45 Body Mass Index 24.33 (72.57 kg, 172.72 cm) iw 07:45 Pain Scale: Adult iw ED Course: 07:28 Patient arrived in ED. cj3 07:47 Triage completed. iw 07:47 Arm band placed on. iw 07:57 Sean Khoury FNP-C is PHCP. dr5 07:57 Prasanna Moore MD is Attending Physician. dr5 07:58 Christiane Tran, ROSALIA is Primary Nurse. kc6 08:02 Patient has correct armband on for positive identification. Bed in low position. Call kc6 light in reach. Side rails up X 1. satellite project site monitor on. Pulse ox on. NIBP on. Door closed. Noise minimized. Lights dimmed. Pillow given. Verbal reassurance given. 08:02 Patient maintains SpO2 saturation greater than 95% on room air. kc6 08:32 US Extremity Venous Unilateral Ltd In Process Unspecified. EDMS 08:51 Missed attempt(s): 20 gauge in right antecubital area. Inserted saline lock: 22 gauge kc6 in left antecubital area, using aseptic technique. Blood collected. Flushed with 10 mL NS. 09:13 XRAY Chest (1 view) In Process Unspecified. EDMS 09:26 CT Chest For PE Angio In Process Unspecified. EDMS 10:02 No provider procedures requiring assistance completed. IV discontinued, intact, kc6 bleeding controlled, No redness/swelling at site. Pressure dressing applied. Administered Medications: 08:51 Drug: morphine IVP or IV 4 mg IVP once over 4 mins Route: IVP; Infused Over: 4 mins; kc6 Site: left antecubital; 09:52 Follow up: Response: No adverse reaction; Pain is decreased kc6 08:51 Drug: Ondansetron IVP 4 mg IVP once; over 2 minutes Route: IVP; Site: left antecubital; kc6 09:52 Follow up: Response: No adverse reaction kc6 08:51 Drug: Aspirin PO Chewable Tablet 324 mg PO once; 81 mg tablets x 4 Route: PO; kc6 09:52 Follow up: Response: No adverse reaction kc6 10:01 Drug: Eliquis PO 10 mg PO once Route: PO; kc6 10:01 Follow up: Response: No adverse reaction kc6 Medication: 10:02 VIS not applicable for this client. kc6 Outcome: 09:46 Discharge ordered by . neal 10:02 Discharged to home ambulatory, kc6 10:02 Condition: good 10:02 Discharge instructions given to patient, Instructed on discharge instructions, follow up and referral plans. medication usage, Demonstrated understanding of instructions, follow-up care, medications, Prescriptions given X 1, 10:02 Patient left the ED. kc6 Signatures: Dispatcher [employer] EDMary Siomn RN RN iw Campbell, Kaitlyn, RN RN kc6 Sean Khoury, RIBBON LAPPER TENDER-C RIBBON LAPPER TENDER-Cdr5 Mita Campos cj3
[2024-07-03] MEDS ORDERED: APIXABAN 5 MG TABLET ONE (09:51)
[2024-07-03 10:29] VITALS: TEMP 98.1
[2024-07-03 10:34] VITALS: BP 129/81; O2SAT 99
--- NOTE | 2024-07-03 12:00 | EKG ---
Test Date: 2024-07-03 Test Time: 07:52:52 Mr Teacher: BLAIR MEASUREMENT RESULTS: Intervals: Rate: 81 NM: 148 QRSD: 88 QT: 388 QTc: 450 [place]: P: 55 NM: 148 QRS: 57 T: 57 INTERPRETIVE STATEMENTS: Normal sinus rhythm Normal ECG Compared to ECG 12/30/2023 13:24:40 Sinus tachycardia no longer present Electronically Signed On 07-03-24 11:59:12 CDT by David Macdonald
== END 2024-07-03 10:02 | disposition home or self-care (01) ==
LOC: ER 07:24
DX: I82.402 Acute embolism and thrombosis of unspecified deep veins of left lower extremity (principal); R07.9 Chest pain, unspecified; Z72.0 Tobacco use
CPT/HCPCS: 93005; 85025; 80048; 36415; 85379; 84484; 83880; 71275; 71045; 93971; 96375; 96374; 99285; J2405

== ENCOUNTER 2024-08-03 11:27 | Emergency (ER) | payer BC ==
--- OUTSIDE RECORDS SUMMARY | 2024-08-03 11:32 | XMS REPORT | Continuity of Care Document ---
Author Name Unknown Address [address] 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 Attending Clinician Ashly kelly HEP, CLINIC Attending Clinician Unavailable KARLA SALAZAR Attending Clinician Ashly kelly SE, ECHO Attending Clinician Unavailable SE, NUCLEAR Attending Clinician Unavailable NIKOLAS ROCK M.D. Attending Clinician Lubna mccallum MHH, GASTRO Attending Clinician Unavailable HILLARY FRASER APRN Attending Clinician Unavail able FELIPE RUSSO Admitting Clinician Un available KARLA SALAZAR Admitting Clinician Ashly kelly Payers Payer Name Policy Type Policy Number Effective Date Expirati on Date Source OPEN ACCESS [employer] SELECT EPO [id number] 2019 00:00:00 [place] [id number] 2022 00:00:00 Problems Condition Name Condition Details Condition Category Status Onset Date Resolution Date Last Treatment Date Treating Clinician Comments Source Obesity (BMI 30-39.9) Obesity (BMI 30-39.9) Disease Active 07-04 00:00: 00 [facility] Chest pain, unspecifie d type Chest pain, unspecifie d type Disease Active 07-04 00:00: 00 [facility] Cigarette smoker Cigarette smoker Disease Active 07-04 00:00: 00 [facility] History of maternal deep vein thrombosis (DVT) History of maternal deep vein thrombosis (DVT) Disease Active 07-04 00:00: 00 [facility] Acute deep vein thrombosis (DVT) of popliteal vein of left lower extremity Acute deep vein thrombosis (DVT) of popliteal vein of left lower extremity Disease Active 07-04 00:00: 00 [facility] History of Anxiety and depression History of [...] Stop Date Quantity Comments Source [facility] History of tobacco use Cigarette Smoker [facility] Alcoholic beverage intake 2024-08-01 00:00:00 2024-08-01 00:00:00 Current drinker of alcohol (finding) [facility] Cigarettes smoked current (pack per day) - Reported 2024-07-06 00:00:00 2024-07-06 00:00:00 [facility] Cigarette pack-years 2024-07-06 00:00:00 2024-07-06 00:00:00 [facility] Tobacco Comment 2024-07-06 00:00:00 2024-07-06 00:00:00 1 pkt per week for 30 yrs [facility] Tobacco use and exposure 2024-07-06 00:00:00 2024-07-06 00:00:00 Smokeless tobacco non-user [facility] History of Social function 2024-07-06 00:00:00 2024-07-06 00:00:00 [facility] Exposure to SARS-CoV-2 (event) 2021-11-02 00:00:00 2021-11-12 08:53:00 [facility] Alcohol intake 2020-09-25 00:00:00 2020-09-25 00:00:00 Ex-drinker (finding) [facility] Sex 2020-06-06 04:17:20 2020-06-06 04:17:20 Female (finding) [facility] Alcohol Comment 2015-02-21 00:00:00 2015-02-21 00:00:00 occasionally [facility] Sex assigned at 1970 00:00:00 1970 00:00:00 [facility] Smoking Status Start Date Stop Date Source Smoker [facility]finding[facility] Occasional tobacco smoker 2024-07-06 00:00:00 [facility] Smokes tobacco daily 2024-07-04 00:00:00 [facility] Ex-smoker 2024-06-07 00:00:00 2024-06-07 00:00:00 [facility] tobacco [facility] Medications Ordered Medication Name Filled Medication Name Start Date Stop Date Current Medication? Ordering Clinician Indication Dosage Frequency Signature (SIG) Comments Components Source ondansetron 4 mg disintegrat ing tablet 08-01 00:00: 00 Yes [id number] 4mg Take 1 tablet by mouth every 8 (eight) hours as needed for Nausea and Vomiting (N/V). [facility] tc 99m-tetrofo smin (MYOVIEW) injection 40.3 millicurie 07-18 16:15: 00 07-18 16:15 :00 No [id number] 40.3mCi 40.3 millicurie , Intravenou s, ONCE, 1 dose, On Wed07/18/24 at 1115, Routine [facility] regadenoson (LEXISCAN) injection 0.4 mg 07-18 15:00: 00 07-18 16:09 :00 No [id number] .4mg 0.4 mg, IV Push, ONCE, 1 dose, On Wed07/18/24 at 1000, Routine, food service team member approving Restricted medication : RITO ALVA [facility] tc 99m-tetrofo smin (MYOVIEW) injection 15.2 millicurie 07-18 14:15: 00 07-18 14:12 :00 No [id number] 15.2mCi 15.2 millicurie , Intravenou s, ONCE, 1 dose, On Wed07/18/24 at 0915, Routine [facility] DULoxetine 60 mg capsule 07-13 00:00: 00 Yes [id number] 60mg Take 1 capsule by mouth in the morning. [facility] mirtazapine 15 mg tablet 07-13 00:00: 00 Yes [id number] 15mg Take 1 tablet by mouth at bedtime. [facility] hydrOXYzine 25 mg tablet 07-06 00:00: 00 Yes [id number] 25mg Take 1 tablet by mouth in the morning. [facility] pantoprazol e 40 mg EC tablet 07-04 10:00: 39 Yes TAKE ONE (1) TABLET BY MOUTH 1 (ONE) TIME EACH DAY BEFORE BREAKFAST. DO NOT CRUSH, CHEW, OR SPLIT. [facility] apixaban (ELIQUIS) 5 mg tablet 07-04 00:00: 00 Yes [id number] 5mg Take 1 tablet by mouth in the morning and 1 tablet in the evening. Indication s: history of deep vein thrombosis [facility] ELIQUIS 5 mg tablet 3-24 00:00: 00 07-04 00:00 :00 No [facility] ergocalcife rol, vitamin d2, 1,250 mcg (50,000 unit) capsule 3-13 00:00: 00 10-13 04:59 :00 Yes [id number] Take 1 capsule by mouth. [facility] pantoprazol e (Protonix) 40 MG EC tablet 2- 00:00: 00 06-08 05:59 :00 Yes [id number] 40mg Take 1 tablet (40 mg total) by mouth 1 (one) time each day before breakfast. Do not crush, chew, or split. [facility] mirtazapine (Remeron) 15 MG tablet 1-23 00:00: 00 Yes 15mg Take 15 mg by mouth every night. [facility] meclizine (Antivert) 25 MG tablet 2023-04 0-16 00:00: 00 Yes 25mg Q.[id number] 3D Take 25 mg by mouth 3 (three) times a day if needed. [facility] escitalopra m (Lexapro) 10 MG tablet 7-19 00:00: 00 Yes 10mg Take 10 mg by mouth every morning. [facility] Cymbalta [address] capsule 2021-04 0-05 00:00: 00 Yes 60mg QD Take 60 mg by mouth 1 (one) time each day. [facility] hydrOXYzine pamoate (Vistaril) 25 MG capsule 2021-04 0-05 00:00: 00 Yes 25mg Q.[id number] 3D Take 25 mg by mouth 3 (three) times a day if needed. [facility] busPIRone (Buspar) 15 MG tablet 8-10 00:00: 00 Yes 15mg Q.5D Take 15 mg by mouth in the morning and 15 mg in the evening. [facility] pantoprazol e (ProtoNix) 40 MG EC tablet 2020-04 1- 00:00: 00 04-22 05:59 :00 No [id number] 40mg TAKE 1 TABLET (40 MG TOTAL) BY MOUTH 1 (ONE) TIME EACH DAY BEFORE BREAKFAST. DO NOT CRUSH, CHEW, OR SPLIT. [facility] pantoprazol e (Protonix) 40 MG EC tablet 2020-04 00:00: 00 02-20 00:00 :00 No [id number] 40mg Take 1 tablet (40 mg total) by mouth 1 (one) time each day before breakfast. Do not crush, chew, or split. [facility] lisinopril- hydroCHLORO thiazide 10-12.5 MG tablet 09-25 20:11: 05 06-07 00:00 :00 No [facility] lisinopril- hydroCHLORO thiazide 10-12.5 MG tablet 09-25 15:11: 05 Yes [facility] omeprazole (PriLOSEC) [address] capsule 05-08 00:00: 00 Yes Take by mouth. [facility] traMADOL (ULTRAM) 50 mg tablet 2017-04 00:00: 00 Yes 50mg Take 1 tablet by mouth every 6 (six) hours as needed for Pain (scale 4-6). [facility] cyclobenzap rine 5 mg tablet 2017-04 00:00: 00 Yes 5mg Take 1 tablet by mouth 3 (three) times daily. [facility] HYDROcodone bitartrate (ZOHYDRO ER) 10 mg Cp12 2014-04 00:00: 00 Yes 5mg Take 5 mg by mouth every 4 (four) hours as needed for Pain (scale 7-10). [facility] ondansetron (ZOFRAN ODT) 8 mg disintegrat ing tablet 2014-04 00:00: 00 08-01 00:00 :00 No 8mg Take 1 Tab by mouth every 8 (eight) hours as needed for Nausea and Vomiting (N/V). [facility] VENLAFAXINE 150 MG ORAL CP24 08-07 00:00: 00 07-13 00:00 :00 No 1 Cap Oral QAM WITH BREAKFAST [facility] Epclusa 400-100 MG Oral Tablet Epclusa 400-100 MG Oral Tablet Yes [facility] Immun[facility] Ordered Immunization Name Filled Immunization Name Date Status Comments Source TDAP 2024-07-06 00:00:00 Completed [facility] Pneumococcal 20 Conjugate, PCV20 (Prevnar 20) 2024-07-06 00:00:00 Completed Zoster Vaccine Recombinant 2024-07-06 00:00:00 Completed Vital Signs Vital Name Observation Time Observation Value Comments Mariela kessler Systolic blood pressure 2024-08-01 19:19:00 119 mm[Hg] [facility] Diastolic blood pressure 2024-08-01 19:19:00 79 mm[Hg] [facility] Heart rate 2024-08-01 19:19:00 91 /min [facility] Body temperature 2024-08-01 19:19:00 36.44 Frances [facility] Body height 2024-08-01 19:19:00 172.7 cm [facility] Body weight 2024-08-01 19:19:00 74.844 kg [facility] BMI 2024-08-01 19:19:00 25.09 kg/m2 [facility] Oxygen saturation in Arterial blood by Pulse oximetry 2024-08-01 19:19:00 98 /min [facility] Systolic blood pressure 2024-07-06 14:48:00 117 mm[Hg] [facility] Diastolic blood pressure 2024-07-06 14:48:00 83 mm[Hg] [facility] Heart rate 2024-07-06 14:48:00 96 /min [facility] Body temperature 2024-07-06 14:48:00 36 Frances [facility] Body height 2024-07-06 14:48:00 172.7 cm [facility] Body weight 2024-07-06 14:48:00 73.029 kg [facility] BMI 2024-07-06 14:48:00 24.48 kg/m2 [facility] Oxygen saturation in Arterial blood by Pulse oximetry 2024-07-06 14:48:00 99 /min [facility] Systolic blood pressure 2024-07-04 14:57:00 136 mm[Hg] [facility] Diastolic blood pressure 2024-07-04 14:57:00 85 mm[Hg] [facility] Heart rate 2024-07-04 14:57:00 86 /min [facility] Body height 2024-07-04 14:57:00 147.3 cm [facility] Body weight 2024-07-04 14:57:00 73.936 kg [facility] BMI 2024-07-04 14:57:00 34.07 kg/m2 [facility] Oxygen saturation in Arterial blood by Pulse oximetry 2024-07-04 14:57:00 97 /min [facility] Systolic blood pressure 2024-06-07 14:45:00 145 mm[Hg] [facility] Diastolic blood pressure 2024-06-07 14:45:00 89 mm[Hg] [facility] Heart rate 2024-06-07 14:45:00 99 /min [facility] Body temperature 2024-06-07 14:45:00 36.22 Frances [facility] Body height 2024-06-07 14:45:00 172.7 cm [facility] Body weight 2024-06-07 14:45:00 70.943 kg [facility] BMI 2024-06-07 14:45:00 23.78 kg/m2 [facility] Systolic blood pressure 2021-11-12 14:05:00 118 mm[Hg] [facility] Diastolic blood pressure 2021-11-12 14:05:00 78 mm[Hg] [facility] Heart rate 2021-11-12 14:05:00 89 /min [facility] Body temperature 2021-11-12 14:05:00 36.72 Frances [facility] Body height 2021-11-12 14:05:00 172.7 cm [facility] Body weight 2021-11-12 14:05:00 74.844 kg [facility] BMI 2021-11-12 14:05:00 25.09 kg/m2 [facility] Systolic blood pressure 2021-02-12 20:07:00 128 mm[Hg] [facility] Diastolic blood pressure 2021-02-12 20:07:00 83 mm[Hg] [facility] Heart rate 2021-02-12 20:07:00 82 /min [facility] Body temperature 2021-02-12 20:07:00 36.28 Frances [facility] Body height 2021-02-12 20:07:00 172.7 cm [facility] Body weight 2021-02-12 20:07:00 88.508 kg [facility] BMI 2021-02-12 20:07:00 29.67 kg/m2 [facility] Systolic blood pressure 2020-09-25 20:08:00 113 mm[Hg] [facility] Diastolic blood pressure 2020-09-25 20:08:00 75 mm[Hg] [facility] Heart rate 2020-09-25 20:08:00 76 /min [facility] Body temperature 2020-09-25 20:08:00 36.33 Frances [facility] Body height 2020-09-25 20:08:00 172.7 cm [facility] Body weight 2020-09-25 20:08:00 99.066 kg [facility] BMI 2020-09-25 20:08:00 33.21 kg/m2 [facility] Systolic blood pressure 2020-08-07 09:33:00 116 mm[Hg] Location: [place]; Position: Sitting [facility] Diastolic blood pressure 2020-08-07 09:33:00 76 mm[Hg] Location: [place]; Position: Sitting [facility] Body height 2020-08-07 09:33:00 68 [in_us] [facility] Weight 2020-08-07 09:33:00 234.0625 [lb_av] [facility] Body mass index (BMI) [Ratio] 2020-08-07 09:33:00 35.59 kg/m2 [facility] Body temperature 2020-08-07 09:33:00 97.2 [degF] Method: Temporal [facility] Heart Rate 2020-08-07 09:33:00 67 /min [facility] Systolic blood pressure 2020-07-03 11:12:00 132 mm[Hg] Location: [place]; Position: Sitting [facility] Diastolic blood pressure 2020-07-03 11:12:00 72 mm[Hg] Location: [facility]; Position: Sitting [facility] Body height 2020-07-03 11:12:00 68 [in_us] [facility] Weight 2020-07-03 11:12:00 249 [lb_av] [facility] Body mass index (BMI) [Ratio] 2020-07-03 11:12:00 37.86 kg/m2 [facility] Body temperature 2020-07-03 11:12:00 97.4 [degF] Method: Temporal [facility] Heart Rate 2020-07-03 11:12:00 91 /min [facility] Heart Rate 2020-06-12 13:11:00 87 /min [facility] Systolic blood pressure 2020-06-12 13:11:00 122 mm[Hg] Location: [facility]; Position: Sitting [facility] Diastolic blood pressure 2020-06-12 13:11:00 78 mm[Hg] Location: [facility]; Position: Sitting [facility] Body height 2020-06-12 13:11:00 68 [in_us] [facility] Weight 2020-06-12 13:11:00 265 [lb_av] [facility] Body mass index (BMI) [Ratio] 2020-06-12 13:11:00 40.29 kg/m2 [facility] Body temperature 2020-06-12 13:11:00 97.8 [degF] Method: Temporal [facility] Systolic blood pressure 2020-05-01 10:48:00 117 mm[Hg] Location: [facility]; Position: Sitting [facility] Diastolic blood pressure 2020-05-01 10:48:00 71 mm[Hg] Location: [facility]; Position: Sitting [facility] Body height 2020-05-01 10:48:00 68 [in_us] [facility] Weight 2020-05-01 10:48:00 259 [lb_av] [facility] Body mass index (BMI) [Ratio] 2020-05-01 10:48:00 39.38 kg/m2 [facility] Body temperature 2020-05-01 10:48:00 98.1 [degF] Method: Temporal [facility] Heart Rate 2020-05-01 10:48:00 79 /min [facility] Systolic blood pressure 2020-04-24 11:07:00 108 mm[Hg] Location: [facility]; Position: Sitting [facility] Diastolic blood pressure 2020-04-24 11:07:00 67 mm[Hg] Location: [facility]; Position: Sitting [facility] Body height 2020-04-24 11:07:00 68 [in_us] [facility] Weight 2020-04-24 11:07:00 255.5625 [lb_av] [facility] Body mass index (BMI) [Ratio] 2020-04-24 11:07:00 38.86 kg/m2 [facility] Body temperature 2020-04-24 11:07:00 98.2 [degF] Method: Temporal [facility] Heart Rate 2020-04-24 11:07:00 76 /min [facility] Systolic blood pressure 2020-04-17 15:23:00 115 mm[Hg] Location: [facility]; Position: Sitting [facility] Diastolic blood pressure 2020-04-17 15:23:00 77 mm[Hg] Location: [facility]; Position: Sitting [facility] Body height 2020-04-17 15:23:00 68 [in_us] [facility] Weight 2020-04-17 15:23:00 259.5625 [lb_av] [facility] Body mass index (BMI) [Ratio] 2020-04-17 15:23:00 39.47 kg/m2 [facility] Body temperature 2020-04-17 15:23:00 97 [degF] Method: Temporal [facility] Heart Rate 2020-04-17 15:23:00 76 /min [facility] Systolic blood pressure 2020-04-10 00:00:00 138 mm[Hg] Location: LUE; Position: Sitting [facility] Diastolic blood pressure 2020-04-10 00:00:00 84 mm[Hg] Location: L[facility]; Position: Sitting [facility] Body height 2020-04-10 00:00:00 68 [in_us] [facility] Weight 2020-04-10 00:00:00 259.0625 [lb_av] [facility] Body mass index (BMI) [Ratio] 2020-04-10 00:00:00 39.39 kg/m2 [facility] Body temperature 2020-04-10 00:00:00 97.8 [degF] Method: Temporal [facility] Heart Rate 2020-04-10 00:00:00 80 /min [facility] Systolic blood pressure 2020-04-03 13:07:00 122 mm[Hg] Location: [facility]; Position: Sitting [facility] Diastolic blood pressure 2020-04-03 13:07:00 84 mm[Hg] Location: [facility]; Position: Sitting [facility] Body height 2020-04-03 13:07:00 68 [in_us] [facility] Weight 2020-04-03 13:07:00 260.375 [lb_av] [facility] Body mass index (BMI) [Ratio] 2020-04-03 13:07:00 39.59 kg/m2 [facility] Body temperature 2020-04-03 13:07:00 97.6 [degF] Method: Temporal [facility] Heart Rate 2020-04-03 13:07:00 87 /min [facility] Systolic blood pressure 2020-03-27 10:49:00 121 mm[Hg] Location: LUE; Position: Sitting [facility] Diastolic blood pressure 2020-03-27 10:49:00 79 mm[Hg] Location: LUE; Position: Sitting [facility] Body height 2020-03-27 10:49:00 68 [in_us] [facility] Weight 2020-03-27 10:49:00 261.5 [lb_av] [facility] Body mass index (BMI) [Ratio] 2020-03-27 10:49:00 39.76 kg/m2 [facility] Body temperature 2020-03-27 10:49:00 96.1 [degF] Method: Temporal [facility] Heart Rate 2020-03-27 10:49:00 76 /min [facility] Systolic blood pressure 2020-03-20 13:58:00 112 mm[Hg] Location: LUE; Position: Sitting [facility] Diastolic blood pressure 2020-03-20 13:58:00 77 mm[Hg] Location: [facility]; Position: Sitting [facility] Body height 2020-03-20 13:58:00 68 [in_us] [facility] Weight 2020-03-20 13:58:00 261.125 [lb_av] [facility] Body mass index (BMI) [Ratio] 2020-03-20 13:58:00 39.7 kg/m2 [facility] Body temperature 2020-03-20 13:58:00 97.5 [degF] Method: Temporal [facility] Heart Rate 2020-03-20 13:58:00 81 /min [facility] Systolic blood pressure 2020-03-13 10:14:00 115 mm[Hg] Location: LUE; Position: Sitting [facility] Diastolic blood pressure 2020-03-13 10:14:00 72 mm[Hg] Location: [facility]UE; Position: Sitting [facility] Body height 2020-03-13 10:14:00 68 [in_us] [facility] Weight 2020-03-13 10:14:00 261.3125 [lb_av] [facility] Body mass index (BMI) [Ratio] 2020-03-13 10:14:00 39.73 kg/m2 [facility] Body temperature 2020-03-13 10:14:00 98 [degF] Method: Oral [facility] Heart Rate 2020-03-13 10:14:00 81 /min [facility] Systolic blood pressure 2020-03-06 09:50:00 128 mm[Hg] Location: [facility]; Position: Sitting [facility] Diastolic blood pressure 2020-03-06 09:50:00 84 mm[Hg] Location: [facility]; Position: Sitting [facility] Body height 2020-03-06 09:50:00 68 [in_us] [facility] Weight 2020-03-06 09:50:00 262.5 [lb_av] [facility] Body mass index (BMI) [Ratio] 2020-03-06 09:50:00 39.91 kg/m2 [facility] Body temperature 2020-03-06 09:50:00 97.6 [degF] Method: Oral [facility] Heart Rate 2020-03-06 09:50:00 82 /min [facility] Systolic blood pressure 2020-02-28 12:55:00 115 mm[Hg] Location: LUE; Position: Sitting [facility] Diastolic blood pressure 2020-02-28 12:55:00 78 mm[Hg] Location: [facility]; Position: Sitting [facility] Body height 2020-02-28 12:55:00 68 [in_us] [facility] Weight 2020-02-28 12:55:00 264 [lb_av] [facility] Body mass index (BMI) [Ratio] 2020-02-28 12:55:00 40.14 kg/m2 [facility] Heart Rate 2020-02-28 12:55:00 97 /min Location: L Radial; [facility] Systolic blood pressure 2020-02-28 09:49:00 99 mm[Hg] Location: [facility]; Position: Sitting [facility] Diastolic blood pressure 2020-02-28 09:49:00 65 mm[Hg] Location: [facility]; Position: Sitting [facility] Body height 2020-02-28 09:49:00 68 [in_us] [facility] Weight 2020-02-28 09:49:00 263.375 [lb_av] [facility] Body mass index (BMI) [Ratio] 2020-02-28 09:49:00 40.05 kg/m2 [facility] Body temperature 2020-02-28 09:49:00 98 [degF] Method: Temporal [facility] Heart Rate 2020-02-28 09:49:00 87 /min [facility] Systolic blood pressure 2020-02-14 13:47:00 110 mm[Hg] Location: [facility]; Position: Sitting [facility] Diastolic blood pressure 2020-02-14 13:47:00 73 mm[Hg] Location: [facility]; Position: Sitting [facility] Body height 2020-02-14 13:47:00 68 [in_us] [facility] Weight 2020-02-14 13:47:00 264.375 [lb_av] [facility] Body mass index (BMI) [Ratio] 2020-02-14 13:47:00 40.2 kg/m2 [facility] Body temperature 2020-02-14 13:47:00 98.3 [degF] Method: Temporal [facility] Heart Rate 2020-02-14 13:47:00 92 /min [facility] Systolic blood pressure 2020-02-07 09:52:00 137 mm[Hg] Location: [facility]UE; Position: Sitting [facility] Diastolic blood pressure 2020-02-07 09:52:00 83 mm[Hg] Location: [facility]; Position: Sitting [facility] Body height 2020-02-07 09:52:00 68 [in_us] [facility] Weight 2020-02-07 09:52:00 266 [lb_av] [facility] Body mass index (BMI) [Ratio] 2020-02-07 09:52:00 40.45 kg/m2 [facility] Body temperature 2020-02-07 09:52:00 97.7 [degF] Method: Temporal [facility] Heart Rate 2020-02-07 09:52:00 93 /min [facility] Procedures Procedure Date / Time Performed Performing Clinician Source TRANSTHORACIC ECHO (TTE) COMPLETE 2024-07-19 18:36:47 Lexie [facility] MYOCARDIUM PERFUSION STRESS AND REST 2024-07-18 17:34:00 Lexie [facility] MYOCARDIUM PERFUSION STRESS AND REST 2024-07-18 17:34:00 Lexie [facility] MYOCARDIUM PERFUSION STRESS AND REST 2024-07-18 17:34:00 Lexie [facility] MYOCARDIUM PERFUSION STRESS AND REST 2024-07-18 17:34:00 Lexie [facility] VARICELLA-ZOSTER VACCINE, (SHINGRIX) 50 MCG/0.5 ML, IM 2024-07-06 15:40:56 Jenna Bingham [facility] TDAP VACCINE, >11 YRS, IM 2024-07-06 15:30:50 Jenna Bingham [facility] PNEUMOCOCCAL 20 CONJUGATE (PREVNAR 20) VACCINE 2024-07-06 15:30:50 Jenna Bingham [facility] COMPREHENSIVE METABOLIC PANEL 2024-06-07 17:17:00 Adama Jennie [facility] LIPID PANEL 2024-06-07 17:17:00 Adama Jennie [facility] He alth VITAMIN B12 2024-06-07 17:17:00 Adama [facility] He alth FOLATE 2024-06-07 17:17:00 Adama Jennie [facility] He alth HEMOGLOBIN A1C 2024-06-07 17:17:00 Adama [facility] CBC AND DIFFERENTIAL 2024-06-07 17:17:00 Adama [facility] VITAMIN D 25 HYDROXY 2024-06-07 17:17:00 Adama Jennie [facility] PTH, INTACT AND CALCIUM 2024-06-07 17:17:00 Hill Galan [facility] IRON AND TIBC 2024-06-07 17:17:00 Adama Jennie [facility] H ealth TSH W/REFLEX TO FT4 2024-06-07 17:17[facility] 25-OH VIT D, (D2,D3), LC/MS/MS 2020-04-10 00:00:00 [facility] [QL] HEMOGLOBIN A1c 2020-04-10 00:00:00 [facility] [QL] LIPID PANEL 2020-04-10 00:00:00 [facility] [QL] PTH, INTACT (WITHOUT CALCIUM) 2020-04-10 00:00:00 [facility] [QL] TSH, 3RD GENERATION W/REFLEX TO FT4 2020-04-10 00:00:00 [facility] [QL] VITAMIN A (RETINOL) 2020-04-10 00:00:00 [facility] [QL] VITAMIN B1, WHOLE BLOOD 2020-04-10 00:00:00 [facility] [QL] VITAMIN E (TOCOPHEROL) 2020-04-10 00:00:00 [facility] History of Riley-en-Y gastric bypass [facility] Encounters Start Date/Time End Date/Time Encounter Type Admission Type Attending Clinicians Care Facility Care Department Encounter ID Source 2022-05-14 06:22:17 Outpatient [facility] [id number] [facility] 2021-05-08 01:04:10 Outpatient HILLARY FRASER [facility] [id number] [facility] 2021-02-05 11:44:28 Outpatient HILLARY FRASER [id number] [facility] 2021-01-23 15:24:33 Outpatient KARLA SALAZAR [facility] [id number] [facility] 2020-09-25 15:27:54 Outpatient KARLA SALAZAR [facility] [id number] [facility] 2020-08-17 03:45:52 Outpatient KARLA SALAZAR [facility] [id number] [facility] 2020-08-02 11:33:34 Outpatient HILLARY FRASER [facility] [id number] [facility] 2024-09-06 09:45:00 2024-09-06 09:45:00 Outpatient KARLA SALAZAR [facility] [id number] [facility] 2024-08-03 00:00:00 2024-08-03 11:00:36 Telephone ZacheryJenna brooke [facility] 1.2.840.114 350.1.13.10 4.2.7.2.686 [id number] [facility] 2024-08-01 00:00:00 2024-08-01 14:44:23 Letter (Out) ZacheryJenna brooke [facility] 1.2.840.114 350.1.13.10 4.2.7.2.686 [id number] [facility] 2024-08-01 14:30:00 2024-08-01 14:43:43 Office Visit ZacheryJenna brooke [facility] 1.2.840.114 350.1.13.10 4.2.7.2.686 [id number] [facility] 2024-07-19 12:40:07 2024-07-19 23:59:00 Hospital Encounter Rito Alva [facility] 1.2.840.114 350.1.13.10 4.2.7.2.686 [id number] [facility] 2024-07-18 08:55:05 2024-07-18 23:59:00 Hospital Encounter [facility] 1.2.840.114 350.1.13.10 4.2.7.2.686 [id number] [facility] 2024-07-18 08:54:41 2024-07-18 08:54:41 Hospital Encounter Rito Alva [facility] 1.2.840.114 350.1.13.10 4.2.7.2.686 [id number] [facility] 2024-07-18 08:54:10 2024-07-18 08:54:10 Hospital Encounter Rito Alva [facility] 1.2.840.114 350.1.13.10 4.2.7.2.686 [id number] [facility] 2024-07-18 08:44:58 2024-07-18 08:53:00 Hospital Encounter Rito Alva [facility] 1.2.840.114 350.1.13.10 4.2.7.2.686 [id number] [facility] 2024-07-14 00:00:00 2024-07-14 08:44:38 Patient Secure g Jenna Bingham [facility] 1.2.840.114 350.1.13.10 4.2.7.2.686 [id number] 044 [id number] [facility] 2024-07-13 00:00:00 2024-07-14 08:07:26 Patient Secure Jenna Lovell [facility] 1.2.840.114 350.1.13.10 4.2.7.2.686 [id number] [facility] 2024-07-12 00:00:00 2024-07-13 09:22:53 Patient Secure Rito Choe [facility] 1.2.840.114 350.1.13.10 4.2.7.2.686 [id number] [facility] 2024-07-07 09:45:00 2024-07-07 10:00:00 Certified Legal Investigator Visit 2, Adc Lab Jenna Bingham 2, Adc Lab [facility] 1.2.840.114 350.1.13.10 4.2.7.2.686 [id number] [facility] 2024-07-06 10:00:00 2024-07-06 10:50:56 Office Visit Jenna [facility] 1.2.840.114 350.1.13.10 4.2.7.2.686 [id number] [facility] 2024-07-05 00:00:00 2024-07-05 14:45:46 Telephone Rito Alva [facility] 1.2.840.114 350.1.13.10 4.2.7.2.686 [id number] [facility] 2024-07-05 00:00:00 2024-07-05 13:31:14 Telephone Rito Alva [facility] 1.2.840.114 350.1.13.10 4.2.7.2.686 [id number] 059 [id number] [facility] 2024-07-04 00:00:00 2024-07-04 10:59:08 Telephone Rito Alva [facility] 1.2.840.114 350.1.13.10 4.2.7.2.686 [id number] 059 [id number] [facility] 2024-07-04 10:00:00 2024-07-04 10:52:50 Office Visit [facility] 1.2.840.114 350.1.13.10 4.2.7.2.686 [id number] [facility] 2024-06-07 09:00:00 2024-06-07 09:31:50 Office Visit MarieKarla morrison [facility] [address] 2 1.2840.114 350.1.13.58 9.2.7.2.686 [id number] [facility] 2024-01-20 14:30:00 2024-01-20 14:30:00 Outpatient KENNETH MCDANIEL [id number] [facility]22-05-20 10:30:00 2022-05-20 10:30:00 Outpatient MARIEKARLA MORRISON [facility] [id number] [facility] 2021-11-12 09:30:00 2021-11-12 09:30:00 Office Visit Karla Salazar [facility] [address] 2 1.2840.114 350.1.13.58 9.2.7.2.686 [id number] [facility] 2021-11-10 00:00:00 2021-11-10 00:00:00 Telephone Karime Cui Cui, Karime [facility] [address] 2 1.2.840.114 350.1.13.58 9.2.7.2.686 [id number] [facility] 2021-11-06 00:00:00 2021-11-06 00:00:00 Telephone Basilia, Karime Cui, Karime [facility] [address] 2 1.2.840.114 350.1.13.58 9.2.7.2.686 [id number] [facility] 2021-02-19 00:00:00 2021-02-19 00:00:00 Refill Karla Salazar [facility] 1.114 350.1.13.58 9.2.7.2.686 [id number] [facility] 2021-02-12 14:30:55 2021-02-12 15:34:31 Office Visit Karla Salazar [facility] [address] 2 1..114 350.1.13.58 9.2.7.2.686 [id number] [facility] 2021-02-06 11:48:00 2021-02-06 23:59:00 Outpatient HILLARY FRASER [facility] [id number] [facility] 2021-01-27 00:00:00 2021-01-27 00:00:00 Orders Only Donna Birmingham Maria [facility] 1.114 350.1.13.58 9.2.7.2.686 [id number] [facility] 2021-01-21 20:50:00 2021-01-23 13:45:00 Inpatient E CATHY NEGRETE [facility] MED [id number] [facility] 2021-01-22 16:29:33 2021-01-22 17:29:33 [facility] KARLA SALAZAR EXT [facility] LOCATION 1. 350.1.13.58 9.2.7.2.686 [id number] [facility] 2021-01-22 16:29:33 2021-01-22 17:29:33 [facility] Karla Salazar EXT [facility] LOCATION 1.114 350.1.13.58 9.2.7.2.686 [id number] [facility] 2020-09-25 14:50:53 2020-09-25 15:26:53 Office Visit Karla Salazar [facility] [address] 2 1..114 350.1.13.58 9.2.7.2.686 [id number] [facility] 2020-08-07 09:30:00 2020-08-07 09:30:00 Appointmen t; KARLA SALAZAR M.D. TRAHAN, MICHAEL, M.D. [facility] [id number] [place] [facility] 2020-08-05 09:00:00 2020-08-05 09:00:00 Appointmen t; HEP, CLINIC HEP, [facility] [id number] [place] [facility] 2020-07-03 11:15:00 2020-07-03 11:15:00 Appointmen t; KARLA SALAZAR M.D. TRAHAN, MICHAEL, M.D. [facility] [id number] [place] [facility] 2020-06-24 11:34:00 2020-06-25 11:10:00 Inpatient U KARLA SALAZAR [facility] [place] [id number] [facility] 2020-06-24 09:00:00 2020-06-24 09:00:00 Appointmen t; KARLA SALAZAR M.D. TRAHAN, MICHAEL, M.D. [facility] [id number] [place] [facility] 2020-06-12 13:45:00 2020-06-12 13:45:00 Appointmen t; KARLA SALAZAR M.D. TRAHAN, MICHAEL, M.D. [facility] [id number] [place] [facility] 2020-05-06 09:57:00 2020-05-06 23:59:00 Outpatient HILLARY FRASER [facility] [id number] [facility] 2020-05-06 10:15:00 2020-05-06 10:15:00 Appointmen t; HEP, CLINIC [facility] [id number] [place] [facility] 2020-05-01 10:00:00 2020-05-01 10:00:00 Appointmen t; KARLA SALAZAR M.D. TRAHAN, MICHAEL, M.D. [facility] [id number] [place] [facility] 2020-04-24 11:30:00 2020-04-24 11:30:00 Appointmen t; KARLA SALAZAR M.D. TRAHAN, MICHAEL, M.D. [facility] [id number] [place] [facility] 2020-04-17 09:30:00 2020-04-17 09:30:00 Appointmen t; KARLA SALAZAR M.D. TRAHAN, MICHAEL, M.D. [facility] [id number] [place] [facility] 2020-04-10 11:15:00 2020-04-10 11:15:00 Appointmen t; KARLA SALAZAR M.D. TRAHAN, MICHAEL, M.D. [facility] [id number] [place] [facility] 2020-04-03 13:15:00 2020-04-03 13:15:00 Appointmen t; KARLA SALAZAR M.D. TRAHAN, MICHAEL, M.D. [facility] [id number] [place] [facility] 2020-03-27 10:00:00 2020-03-27 10:00:00 Appointmen t; KARLA SALAZAR M.D. TRAHAN, MICHAEL, M.D. [facility] [id number] [place] [facility] 2020-03-20 14:15:00 2020-03-20 14:15:00 Appointmen t; KARLA SALAZAR M.D. TRAHAN, MICHAEL, M.D. [facility] [id number] [place] [facility] 2020-03-19 13:00:00 2020-03-19 13:00:00 Appointmen t; SE, ECHO SE, ECHO [facility] [id number] [place] [facility] 2020-03-19 10:00:00 2020-03-19 10:00:00 Appointmen t; SE, NUCLEAR SE, NUCLEAR [facility] [id number] [place] [facility] 2020-03-13 10:15:00 2020-03-13 10:15:00 Appointmen t; KARLA SALAZAR M.D. TRAHAN, MICHAEL, M.D. [facility] [id number] [place] [facility] 2020-03-06 09:45:00 2020-03-06 09:45:00 Appointmen t; KARLA SALAZAR M.D. TRAHAN, MICHAEL, M.D. [facility] [id number] [place] [facility] 2020-02-28 13:00:2020-02-28 13:00:00 Appointmen t; NIKOLAS ROCK M.D. TRANG, AMANDA, M.D. [facility] [id number] [place] [facility] 2020-02-28 10:00:00 2020-02-28 10:00:00 Appointmen t; KARLA SALAZAR M.D. TRAHAN, MICHAEL, M.D. [facility] General Surgery [facility] [id number] [place] [facility] 2020-02-26 09:00:2020-02-26 09:00:00 Appointmen t; HEP, CLINIC HEP, CLINIC [facility] UTP [id number] [place] [facility] 2020-02-22 14:30:00 2020-02-22 14:30:00 Appointmen t; MHH, GASTRO MHH, GASTRO [facility] UTP [id number] [place] [facility] 2020-02-15 09:00:00 2020-02-15 09:00:00 Outpatient KARLA SALAZAR [facility] [id number] [facility] 2020-02-14 14:00:00 2020-02-14 14:00:00 Appointmen t; KARLA SALAZAR M.D. TRAHAN, MICHAEL, M.D. [facility] [id number] [place] [facility] 2020-02-07 10:00:00 2020-02-07 10:00:00 Appointmen t; KARLA SALAZAR M.D. TRAHAN, MICHAEL, M.D. [facility] [id number] [place] [facility] 2019-12-28 09:00:2019-12-28 09:00:00 Appointmen t; HILLARY FRASER APRN THOMAS, GLENTY, APRN [facility] UTP [id number] [place] [facility] Test Description Test Time Test Comments Results Result Co mments Source [facility] and [id number] 19:10:25* Test Item Value Reference Range Interpretation Comme nts WHITE BLOOD CELL COUNT (test code = 6690-2) 5.7 3.8-10.8 RED BLOOD CELL COUNT (test code = 789-8) 4.94 3.80-5.10 HEMOGLOBIN (test code = 718-7) 12 g/dL 11.7-15.5 HEMATOCRIT (test code = 4544-3) 39.8 % 35.0-45.0 MCV (test code = 787-2) 80.6 fL 80.0-100.0 MCH (test code = 785-6) 24.3 pg 27.0-33.0 L MCHC (test code = 786-4) 30.2 g/dL 32.0-36.0 L For adults, a sl ight decrease in the calculated MCHCvalue (in the range of 30 to 32 g/dL) is most likelynot clinically significant; however, it should beinterpreted with caution in correlation with otherred cell parameters and the patient's clinicalcondition. RDW (test code = 788-0) 16.5 % 11.0-15.0 H PLATELET COUNT (test code = 777-3) 258 140-400 MPV (test code = 776-5) 9.8 fL 7.5-12.5 ABSOLUTE NEUTROPHILS (test code = 751-8) 4332 3504-4795 ABSOLUTE LYMPHOCYTES (test code = 731-0) 1022 296-5085 ABSOLUTE MONOCYTES (test code = 742-7) 274 200-950 ABSOLUTE EOSINOPHILS (test code = 711-2) 11 15-500 L ABSOLUTE BASOPHILS (test code = 704-7) 68 0-200 NEUTROPHILS (test code = 770-8) 76 % LYMPHOCYTES (test code = 736-9) 17.8 % MONOCYTES (test code = 5905-5) 4.8 % EOSINOPHILS (test code = 713-8) 0.2 % BASOPHILS (test code = 706-2) 1.2 % Lab Interpretation (test code = 92849-3) Abnormal IN [id number] 19:10:25* Test Item Value Reference Range Interpretation Comme nts FOLATE, SERUM (test code = 2284-8) 7.2 ng/mL ? Reference Range ? Low: ? <3.4 ? Borderline: ? ?3.4-5.4 ? Normal: ?>5.4. [facility] [id number] 19:10:25* Test Item Value Reference Range Interpretation Comme nts HEMOGLOBIN A1c (test code = 4548-4) 5.4 See_Comment For the purpose of screening for the presence ofdiabetes:.<5.7% ? ? ? Consistent with the absence of diabetes5.7-6.4% ? ?Consistent with increased risk for diabetes ?(prediabetes)> or =6.5% ?Consistent with diabetes.This assay result is consistent with a decreased riskof diabetes..Currently, no consensus exists regarding use ofhemoglobin A1c for diagnosis of diabetes in children..According to [place] Diabetes Association (ADA)guidelines, hemoglobin A1c <7.0% represents optimalcontrol in non- diabetic patients. Differentmetrics may apply to specific patient populations. Standards of Medical Care in Diabetes(ADA).. [Automated message] The system which generated this result transmitted reference range: <5.7 % of total Hgb. The reference range was not used to interpret this result as normal/abnormal. [place] [facility] and [id number] 19:10:25* Test Item Value Reference Range Interpretation Comme [facility] IRON, TOTAL (test code = 2498-4) 46 45-160 IRON BINDING CAPACITY (test code = 2500-7) 504 250-450 H % SATURATION (test code = 2502-3) 9 16-45 L Lab Interpretation (test cod e = 36048-0) [facility] [id number] 19:10:25* Test Item Value Reference Range Interpretation Comme [facility] TSH W/REFLEX TO FT4 (test code = 3016-3) 3.08 mIU/L ?Re ference Range. ?> or = 20 Years ?0.40-4.50. ? Ranges ?First trimester ? ?0.26-2.66 ?Second trimester ? 0.55-2.73 ?Third trimester ? ?0.43-2.91 [facility] 25 [id number] 19:10:25* Test Item Value Reference Range Interpretation Comme [facility] VITAMIN D,25-OH,TOTAL,IA (test code = 1988-) 18 ng/mL 30-100 L Vitamin D S tatus ? 25-OH Vitamin D:.Deficiency: ?<20 ng/mLInsufficiency: ? 20 - 29 ng/mLOptimal: ? > or = 30 ng/mL.For 25-OH Vitamin D testing on patients on D2-supplementation and patients for whom quantitation of D2 and D3 fractions is required, the QuestAssureD(TM)25-OH VIT D, (D2,D3), LC/MS/MS is recommended: order code 81125 (patients >2yrs)..See Note 1.Note 1.For additional information, please refer to http://education.Makepolo.com/faq/ OSW015 (This link is being provided for informational/educati onal purposes only.) Lab Interpretation (test code = 76334-9) Abnormal [place] HealthVitamin [id number] 19:10:25* Test Item Value Reference Range Interpretation Comme [facility] VITAMIN B12 (test code = 2132-9) 484 pg/mL 200-1100 [facility] [id number] 19:10:24* Test Item Value Reference Range Interpretation Comme [facility] GLUCOSE (test code = 2345-7) 106 mg/dL 65-99 H . ? Fast ing reference interval.For someone without known diabetes, a glucose valuebetween 100 and 125 mg/dL is consistent withprediabetes and should be confirmed with afollow-up test.. UREA NITROGEN (BUN) (test code = 3094-0) 14 mg/dL 7-25 CREATININE (test code = 2160-0) 0.67 mg/dL 0.50-1.03 EGFR (test code = 661141000) 103 See_Comment [Automated [employer]] The system which generated this result transmitted reference range: > OR = 60 mL/min/1.73m2. The reference range was not used to interpret this result as normal/abnormal. BUN/CREATININE RATIO (test code = 3097-3) SEE NOTE: 6 ? Not Repor reba: BUN and Creatinine are within ? reference range.. SODIUM (test code = 2951-2) 140 mmol/L 135-146 POTASSIUM (test code = 2823-3) 4.3 mmol/L 3.5-5.3 CHLORIDE (test code = 2074-0) 101 mmol/L 98-110 CARBON DIOXIDE (test code = 2027-12) 29 mmol/L 20-32 CALCIUM (test code = 01424-0) 10.1 mg/dL 8.6-10.4 PROTEIN, TOTAL (test code = 2885-2) 7.8 g/dL 6.1-8.1 ALBUMIN (test code = 1751-7) 4.8 g/dL 3.6-5.1 GLOBULIN (test code = 05800-9) 3 1.9-3.7 ALBUMIN/GLOBULIN RATIO (test code = 1759-0) 1.6 1.0-2.5 BILIRUBIN, TOTAL (test code = 1974-) 0.4 mg/dL 0.2-1.2 ALKALINE PHOSPHATASE (test code = 6768-6) 78 U/L 37-153 AST (test code = 1920-8) 22 U/L 10-35 ALT (test code = 1742-6) 17 U/L 6-29 Lab Interpretation (test code = 40725-1) Abnormal IN HealthLipid [id number] 19:10:24* Test Item Value Reference Range Interpretation Comme nts CHOLESTEROL, TOTAL (test code = 2092-) 336 mg/dL <=200 H HDL CHOLESTEROL (test code = 2084-12) 165 mg/dL See_Comment [Automated CMP.LYa Mozes] The system which generated this result transmitted reference range: > OR = 50. The reference range was not used to interpret this result as normal/abnormal. TRIGLYCERIDES (test code = 2571-8) 88 mg/dL <=150 LDL-CHOLESTEROL (test code = 05694-3) 152 mg/dL (calc) H Reference range: <100.Desirable range <100 mg/dL for primary prevention; ?<70 mg/dL for patients with CHD or diabetic patients with > or = 2 CHD risk factors..LDL-C is now calculated using the Víctor calculation, which is a validated novel method providing better accuracy than the Friedewald equation in the estimation of LDL-C. Raimundo ELIZONDO et al. DUNIA. 2013;310(19): 1713-7028 (http://education.[employer].com/f aq/YBH322) CHOL/HDLC RATIO (test code = 9830-1) 2 See_Comment [Automated messa ge] The system which generated this result transmitted reference range: <5.0 (calc). The reference range was not used to interpret this result as normal/abnormal. NON HDL CHOLESTEROL (test code = 95092-5) 171 See_Comment H For patien ts with diabetes plus 1 major ASCVD risk factor, treating to a non-HDL-C goal of <100 mg/dL (LDL-C of <70 mg/dL) is considered a therapeutic option. [Automated message] The system which generated this result transmitted reference range: <130 mg/dL (calc). The reference range was not used to interpret this result as normal/abnormal. Lab Interpretation (test code = 30143-0) Abnormal [place] HealthPTH, intact and [id number] 19:10:24* Test Item Value Reference Range Interpretation [...] Normal ? ?High. CALCIUM (test code = 07193-8) 10.1 mg/dL 8.6-10.4 [facility][] LIPID [id number] 10:53:00* Test Item Value Reference Range Interpretation Comme nts CHOLESTEROL, TOTAL; Above High Threshold (test code = 2093-3) 241 mg/dl <200 HDL CHOLESTEROL; Normal (test code = 2085-9) 69 mg/dl > OR = 50 N TRIGLYCERIDES; Normal (test code = 2571-8) 101 mg/dl <150 N LDL-CHOLESTEROL; Above High Threshold (test code = 54739-9) 151 {MG/DL EYAL} Reference range: <100 Desirable range <100 mg/dL for primary prevention; <70 mg/dL for patients with CHD or diabetic patients with > or = 2 CHD risk factors. LDL-C is now calculated using the Víctor calculation, which is a validated novel method providing better accuracy than the Friedewald equation in the estimation of LDL-C. Raimundo ELIZONDO et al. DUNIA. 2013;310(19): 9031-4064 (http://Pebble.[employer]/f /WKG383) CHOL/HDLC RATIO (test code = CHOL/HDLC RATIO) 3.5 {CALC} <5.0 N NON HDL CHOLESTEROL (test code = NON HDL CHOLESTEROL) 172 {MG/DL EYAL} <130 For patients with diabetes plus 1 major ASCVD risk factor, treating to a non-HDL-C goal of <100 mg/dL (LDL-C of <70 mg/dL) is considered a therapeutic option. [place] [facility][QL] PTH, INTACT (WITHOUT CALCIUM)2020-04-23 10:53:00* Test Item Value Reference Range Interpretation Comme nts PARATHYROID HORMONE, INTACT (test code = PARATHYROID HORMONE, INTACT) 25 pg/ml 14-64 N Interpretive Gu rudolph Intact PTH Calcium -------Normal Parathyroid Normal NormalHypoparathyroidism Low or Low Normal LowHyperparathyroidism Primary Normal or High High Secondary High Normal or Low Tertiary High HighNon-Parathyroid Hypercalcemia Low or Low Normal High [facility][QL] VITAMIN E (TOCOPHEROL)2020-04-23 10:53:00* Test Item [...] analytical performance characteristics have been determined by [employer]. It has not been cleared or approved by theFDA. This assay has been validated pursuant to the CLIA regulations and is used for clinical purposes. TUFZ-NSRCZ-IXMEFV JENNA (test code = LKBC-WXSZP-DOAFMQ JENNA) 2.2 mg/L <4.4 This test was de veloped and its analytical performance characteristics have been determined by [employer]. It has not been cleared or approved by theFDA. This assay has been validated pursuant to the CLIA regulations and is used for clinical purposes. [place] [facility][QL] TSH, 3RD GENERATION W/REFLEX TO [id number] 10:53:00* Test Item Value Reference Range Interpretation Comme nts TSH, 3RD GENERATION W/REFLEX TO FT4 (test code = TSH, 3RD GENERATION W/REFLEX TO FT4) 3.49 {MIU/L} N Reference Range > or = 20 Years 0.40-4.50 Ranges First trimester 0.26-2.66 Second trimester 0.55-2.73 Third trimester 0.43-2.91 [facility][QL] VITAMIN B1, WHOLE [id number] 10:53:00* Test Item Value Reference Range Interpretation Comme nts VITAMIN B1, WHOLE BLOOD (test code = VITAMIN B1, WHOLE BLOOD) 121 nmol/L 78-185 Vitamin suppleme ntation within 24 hours prior toblood draw may affect the accuracy of results. This test was developed and its analytical performance characteristics have been determined by [employer]. It has not been cleared or approved by theFDA. This assay has been validated pursuant to the CLIA regulations and is used for clinical purposes. [place] [facility][QL] HEMOGLOBIN [id number] 10:53:00* Test Item Value Reference Range Interpretation [...] diagnosis of diabetes in children. According to [place] Diabetes Association (ADA)guidelines, hemoglobin A1c <7.0% represents optimalcontrol in non- diabetic patients. Differentmetrics may apply to specific patient populations. Standards of Medical Care in Diabetes(ADA). [place] [facility][QL] VITAMIN A (RETINOL)2020-04-23 10:53:00* Test Item Value Reference Range Interpretation Comme nts VITAMIN A (test code = VITAMIN A) 33 {mcg/dl} 38-98 Clin Chem Vo l. 34.No.8. [id number]. 1998Vitamin supplementation within 24 hours prior to blood draw may affect the accuracy of results. This test was developed and its analytical performance characteristics have been determined by [employer]. It has not been cleared or approved by theA. This assay has been validated pursuant to the CLIA regulations and is used for clinical purposes. [facility][Q] QUESTASSURED 25-OH VIT D, (D2,D3), LC/MS/PT0295-09-19 10:53:00 * Test Item Value Reference Range Interpretation Comme nts VITAMIN D, 25-OH, TOTAL (test code = [...] 2011;96(7):1911-30. For additional information, please refer to http://education.[employer].com/faq/EHU432 VITAMIN D, 25-OH, D3 (test code = VITAMIN D, 25-OH, D3) 33 ng/ml Reference range: Not established VITAMIN D, 25-OH, D2 (test code = VITAMIN D, 25-OH, D2) <4.0 (Note)Reference range: Not established This test was developed and its analytical performancecharacteristics have been determined by [employer]. It has not beencleared or approved by the [place] Food and Drug Administration. Thisassay has been validated pursuant to the CLIA regulation and is usedfor Clinical purposes.[facility]Fmed [id number] [place] [address],[address] [place] [address] [phone] [place]ump, ILIANAhilaria Note 1 Note 1 For additional information, please refer to http://education.[employer]/faq/MDF842 (This link is being provided for informational/educational purposes only.) [facility] Notes Date/Time Note Provider Source 2024-08-03 10:43:33 Have updated return to work note T [facility] 2024-07-18 09:00:00 Summary: nm stress Imelda Diaz is a 53 year old female received to Nuclear Medicine for Stress Test. Pt is AAOx4 and is in NAD. Pt identified using Name & . Pt endorses no caffeine intake for 24 hrs and being NPO at least 4 hrs. PIV placed at right a/c. Indication for this Stress Test is chest pain. NM Tech monitoring is jose Supervising physician lexie obtained consent at 07/18/24 Time out completed 1119 Lexiscan 0.4mg/5mL injected at 1119, followed by 5mL NS flush. Pre Stress Test vitals are: BP 121/78 HR 63 Resp 20 O2 sat 99 Injection vitals are: BP 114/72 HR 95 Resp 20 O2 sat 99 Recovery vitals are: BP 120/78 HR 94 Resp 20 O2 sat 100 PIV removed, pt leaving in no obvious distress. [facility] 2024-07-13 19:50:21 1. Anxiety and depression - DULoxetine 60 mg capsule; Take 1 capsule by mouth in the morning. Dispense: 90 capsule; Refill: 0 - mirtazapine 15 mg tablet; Take 1 tablet by mouth at bedtime. Dispense: 30 tablet; Refill: 2 [facility] 2024-07-13 08:51:[address] Alva for hematology referral to be placed as recommended in last OV Maria Luisa Valles RN [facility] 2024-07-07 09:45:00 Images from the original note were not included. Venipuncture collection performed by clean technique on the left anticubitus. Total of 1 attempts were made. Slight pressure and a bandage/dressing were applied to the site(s). The patient experienced no complications. The following specimens were processed according to instructions and sent to [facility] laboratories per lab order on 07/07/2024 : LT BLUE SST 3 RED LAV 2 PPT DK GREEN (LiHep) DK GREEN (SodH) CAMPBELL DK BLUE (K2) DK BLUE (S) ACD Blood Culture NIPT/NTD [facility] 2024-07-05 14:44:14 Forwarded hematology information to pt in my chart. Maria Luisa Valles RN [facility] 2024-07-05 14:19:19 Imelda Diaz is a 53 year old female Pt calling in regards to hematology ref. Pt states she needs the name of the email administrator Dr. Alva wants her to see. Please advise. Sandro Britton [facility] 2024-07-05 13:30:[address] Alva full name for pt referral Maria Luisa Valles RN [facility] 2024-07-05 12:31:00 Imelda Diaz is a 53 year old female Pt is calling, the referral dept is needing to know which Dr Dr Alva is referring her to for Hematology. Please advise Nubia Grubbs [facility] 2024-07-04 10:58:05 Referral and office note faxed to Dr. Rocha office at [phone]. Will scan to chart once confirmation received. Kandice Hollins RN [facility] 2024-07-04 10:51:35 ----- Message from Rito Alva sent at 07/04/2024 10:29 AM CDT ----- Plz refer pt to [facility] Dr. Aj Nash fax my note to him [facility]
[2024-08-03 12:22] LABS: Absolute Basophils 0.1 K/uL (0-0.5); Absolute Lymphocytes (CBC) 1.6 K/uL (0.7-4.9); Absolute Monocytes 0.2 K/uL (0.1-1.3); Absolute Neutrophil 2.4 K/uL (1.8-8.0); Eosinophils % 0.4 % (0-4.4); Hematocrit 37.6 % (36.0-45.0); Hemoglobin 12.6 g/dL (12.0-15.0); Lymphocytes % 36.7 % (15.3-44.8); MCH 25.3 pg (27.0-35.0); MCHC 33.4 g/dL (32.0-36.0); MCV 75.7 fL (80-100); MPV 7.4 fL (7.6-11.3); Monocytes % 5.1 % (3.3-12.3); Neutrophils % 55.8 % (41.7-73.7); Nucleated Red Blood Cells % 0.2 % (0-0); Platelets 216 thou/uL (152-406); RBC Red Blood Cell Count 4.96 M/uL (3.86-4.86); Red Cell Distribution Width 19.7 % (12.1-15.2)
[2024-08-03 12:37] LABS: PT Prothrombin Time 10.7 SECONDS (10-13.0); PTT, Activated Partial Thromb 29.4 SECONDS (27.2-37.4); Protime INR 0.94
[2024-08-03 13:23] LABS: ALT/SGPT 23 U/L (13-56); AST/SGOT 20 U/L (15-37); Albumin 3.7 g/dL (3.4-5.0); Albumin/Globulin Ratio 0.9 (1.1-1.8); Alkaline Phosphatase 76 U/L (45-117); Anion Gap 11.9 mEq/L (5.0-15.0); BUN Blood Urea Nitrogen 12 mg/dL (7-18); Bicarbonate 24 mEq/L (21-32); Bilirubin Direct < 0.2 mg/dL (0-0.2); Bilirubin Total 0.2 mg/dL (0.2-1.0); Globulin 3.9 g/dL (2.3-3.5); Glomerular Filtration Rate 94 ml/min (=/>90); Glucose Level 98 mg/dL (74-106); Potassium 3.9 mEq/L (3.5-5.1); Protein, Total 7.6 g/dL (6.4-8.2); Sodium Level 135 mEq/L (136-145)
[2024-08-03 14:03] LABS: Specific Gravity < 1.005 (1.005-1.030); Sqamous Epithelial <5 /HPF (None Seen); Urine Bacteria None Seen /HPF (<20); Urine Bilirubin NEGATIVE (Negative); Urine Blood Negative (Negative); Urine Clarity Turbid (Clear); Urine Color Colorless (Yellow); Urine Culture Reflex Order NOT NEEDED; Urine Glucose NEGATIVE (Negative); Urine Ketones NEGATIVE (Negative); Urine Microscopic Reflex YN ORDER UMIC; Urine Nitrite NEGATIVE (Negative); Urine Protein NEGATIVE (Negative); Urine RBC None Seen /HPF (None Seen); Urine Urobilinogen Normal (Normal); Urine WBC <5 /HPF (<5); Urine pH 5.5 (5.0-7.0)
[2024-08-03 14:08] LABS: Barbiturates NEGATIVE (NEGATIVE); Benzodiazepines NEGATIVE (NEGATIVE); Cocaine NEGATIVE (NEGATIVE); METHAMPHETAM NEGATIVE (NEGATIVE); Methadone NEGATIVE (NEGATIVE); Opiates NEGATIVE (NEGATIVE); Phencyclidine NEGATIVE (NEGATIVE); THC Cannibis NEGATIVE (NEGATIVE)
--- NOTE | 2024-08-03 20:32 | ER ---
Nurse's Notes [facility] Name: Imelda Quiñonez Age: 53 yrs Sex: Female : 1970 Arrival Date: 08/03/2024 Time: 11:27 Bed 24 [facility] MD: Diagnosis: Suicidal ideations Presentation: 08/03 11:50 Chief complaint: EMS states: Toned out to patient home upon request from patient due to ld1 suicidal ideation. Pt reports taking 62 Hydroxyzine pills HCL 25mg. Pt states "I want to ." Denies HI. Coronavirus screen: At this time, the client does not indicate any symptoms associated with coronavirus-19. Ebola Screen: No symptoms or risks identified at this time. Risk Assessment: Do you want to hurt yourself or someone else? Patient reports no desire to harm self or others. Onset of symptoms was August 03, 2024. 11:50 Method Of Arrival: EMS: [facility] ld1 11:50 Acuity: XIN 2 ld1 11:50 Initial Sepsis Screen: Does the patient meet any 2 criteria? No. Patient's initial ld1 sepsis screen is negative. Does the patient have a suspected source of infection? No. Patient's initial sepsis screen is negative. Triage Assessment: 11:55 General: Appears in no apparent distress. comfortable, Behavior is calm, cooperative, ld1 appropriate for age. Pain: Denies pain. EENT: No signs and/or symptoms were reported regarding the EENT system. Neuro: Level of Consciousness is awake, alert, obeys commands, Oriented to person, place, time, situation. Cardiovascular: Capillary refill < 3 seconds Patient's skin is warm and dry. Respiratory: Airway is patent Respiratory effort is even, unlabored. GI: Abdomen is flat, non-distended. : No signs and/or symptoms were reported regarding the genitourinary system. Derm: No signs and/or symptoms reported regarding the dermatologic system. Musculoskeletal: No signs and/or symptoms reported regarding the musculoskeletal system. Historical: - Allergies: 11:50 No Known Allergies; ld1 - PMHx: 11:50 depressive disorder; Hypertension; ld1 - PSHx: 11:50 section; Gastric Bypass; Cholecystectomy; Ligation of fallopian tube; ld1 - Immunization history:: Adult Immunizations up to date. - Infectious Disease History:: Denies. - Social history:: Smoking status: Patient denies any tobacco usage or history of. - History obtained from: EMS. Screenin:53 [facility] ED Fall Risk Assessment (Adult) History of falling in the last 3 months, ld1 including since admission No falls in past 3 months (0 pts) Confusion or Disorientation No (0 pts) Intoxicated or Sedated No (0 pts) Impaired Gait No (0 pts) Mobility Assist Device Used No (0 pt) Altered Elimination No (0 pt) Score/Fall Risk Level 0 - 2 = Low Risk Oriented to surroundings, Hourly rounding (assess needs \\T\\ fall precautionary measures) done. Abuse screen: Denies threats or abuse. Denies injuries from another. Nutritional screening: No deficits noted. Tuberculosis screening: No symptoms or risk factors identified. Assessment: 11:55 Reassessment: See triage assessment. SI precautions in place. Room safe with items ld1 removed. Sitter at bedside. SI paperwork completed at this time. Meal tray ordered. 11:57 Reassessment: STEPHANIE in place at 1046. ld1 13:09 Reassessment: phone number Fox Quiñonez - [phone]. ld1 19:00 General: Appears in no apparent distress. comfortable, Behavior is calm, cooperative. lg3 Pain: Denies pain. Neuro: No deficits noted. [place] Agitation-Sedation Scale (RASS): 0 - Alert and Calm Level of Consciousness is awake, alert, obeys commands, Oriented to person, place, time, situation. Cardiovascular: No deficits noted. Denies chest pain, shortness of breath, Capillary refill < 3 seconds Clubbing of nail beds is absent JVD is absent Patient's skin is warm and dry. Respiratory: No deficits noted. Airway is patent Respiratory effort is even, unlabored, Respiratory pattern is regular, symmetrical. GI: No deficits noted. No signs and/or symptoms were reported involving the gastrointestinal system. : No signs and/or symptoms were reported regarding the genitourinary system. EENT: No deficits noted. No signs and/or symptoms were reported regarding the EENT system. Derm: No deficits noted. No signs and/or symptoms reported regarding the dermatologic system. Skin is intact, is healthy with good turgor, Skin is dry, Skin is normal, Skin temperature is warm. Musculoskeletal: No deficits noted. No signs and/or symptoms reported regarding the musculoskeletal system. Circulation, motion, and sensation intact. Range of motion: intact in all extremities. 21:48 General: nurse to nurse given to Jessica with [facility]. lg3 23:20 Reassessment: Patient appears in no apparent distress at this time. No changes from lg3 previously documented assessment. Patient and/or family updated on plan of care and expected duration. Pain level reassessed. Patient is alert, oriented x 3, equal unlabored respirations, skin warm/dry/pink. Psych: 19:00 [place] Suicide Severity Screening: In the past month, have you wished you were lg3 or wished you could go to sleep and not wake up? Patient responds "yes." "In the past month, have you actually had any thoughts of killing yourself?" Patient responds "yes." "In your lifetime, have you ever done anything, started to do anything, or prepared to do anything to end your life?" Patient responds "yes.". Subjective: Patient's mood is sad, hopeless, Delusions are denied, Hallucinations are denied Having thoughts of suicide. Plan for suicide is overdose or self sustained stabbing. Objective: Patient is cooperative, guarded, irritable, using poor eye contact, Speech is normal, Affect is appropriate. Interventions: Removed personal items and placed in bag. Belonging list filled out. Safety Checks: Personal items have been removed. Pt has been placed in a hallway bed/chair. No visitors are present at this time. Patient uses [place] daily. Patient does not have a history of DTs. Commitment: Patient will be an involuntary commitment. Vital Signs: 11:50 BP 112 / 71; Pulse 75; Resp 18; Temp 97.4(TE); Pulse Ox 95% on R/A; Weight 65.77 kg; ld1 Height 5 ft. 3 in. ; Pain 0/10; 13:42 BP 98 / 66; Pulse 71; Resp 18; Pulse Ox 98% on R/A; ld1 19:00 BP 126 / 80; Pulse 83; Resp 16; Pulse Ox 98% on R/A; kmf 23:16 BP 110 / 74; Pulse 80; Resp 17; Pulse Ox 97% on R/A; kmf 11:50 Body Mass Index 25.69 (65.77 kg, 160.02 cm) ld1 11:50 Pain Scale: Adult ld1 ED Course: 11:29 Patient arrived in ED. bd 11:32 Rosalia Salazar MD is Attending Physician. sw6 11:53 Triage completed. ld1 11:55 Arm band placed on right wrist. ld1 11:55 Patient has correct armband on for positive identification. Bed in low position. Side ld1 rails up X2. Valuables inventory done. sent with security.. Pulse ox on. NIBP on. Door closed. Warm blanket given. 11:57 Mariposa Ortega, ROSALIA is Primary Nurse. ld1 19:00 No provider procedures requiring assistance completed. lg3 19:07 Safety checks: Family/friend present: Sitter present: Yes. [facility] 19:38 Notified primary nurse of patient requested medication for anxiety. ROSALIA Hall, informed [facility] me that patient is currently not eligible to receive medication at the time due to elevated ETOH level. I offered alternative comfort measures; patient accepted a warm blanket and the TV was turned on for distraction. Patient appeared receptive of these interventions and voiced appreciation. 20:00 [facility] for screening. kmf 23:21 IV discontinued, intact, bleeding controlled, No redness/swelling at site. Pressure lg3 dressing applied. 23:25 Provided Education on: transfer. lg3 Administered Medications: 22:54 Drug: Diazepam PO 2 mg PO once Route: PO; sb4 23:27 Follow up: Response: No adverse reaction; Marked relief of symptoms; Anxiety decreased lg3 Medication: 11:55 VIS not applicable for this client. ld1 Outcome: 20:32 ER care complete, transfer ordered by . rn 23:25 Instructed on the need for transfer, Demonstrated understanding of instructions, lg3 23:25 Transferred by ground EMS Transfer form completed. Note: [facility] lg3 23:25 Condition: stable 23:27 Patient left the ED. lg3 Signatures: Yuki Pagan Roman, MD MD rn Able, Lacie, RN RN lg3 Mariposa Ortega RN RN ld1 Margareth Holbrook PA-C PAMiguelC sb4 Maricruz Carvalho f Rosalia Salazar MD MD sw6 Corrections: (The following items were deleted from the chart) 19:43 19:[address] [facility] 19:46 19:[address] [facility] 23:21 Condition: stable lg3 lg3 :21 Transferred by ground EMS Transfer form completed. Note: [facility] lg3 lg3 23: Instructed on the need for transfer, Demonstrated understanding of instructions, lg3 lg3
--- NOTE | 2024-08-03 20:32 | EDPHYS ---
Physician Documentation [facility] Name: Imelda Quiñonez Age: 53 yrs Sex: Female : 1970 Arrival Date: 08/03/2024 Time: 11:27 Bed 24 Private MD: PETER Physician Rosalia Salazar HPI: 08/03 12:05 This 53 yrs old Female presents to ER via EMS with complaints of Suicidal sw6 Ideation. 12:05 The patient presents to the emergency department with depression, over a , a sw6 relative of the patient, a history of a suicide gesture, where the patient took pills/medications, Hydralazine. Onset: The symptoms/episode began/occurred just prior to arrival. Past psychiatric history: Psychiatric medications include: Hydralazine, the patient has a previous inpatient psychiatric history, last year. The patient presents from home with EMS for evaluation after a suicide attempt by ingestion of hydralazine approximately 1 hour prior to arrival. She reports she was trying to harm herself. She also reports is drinking a bottle of wine today. She did call 911 herself and is currently tearful throughout the examination. She complains she is sleepy. No nausea or vomiting. No fevers or chills. No chest pain or pressure. No shortness of breath. She does have a history of alcohol abuse and has been in rehab several times. She reports she had been doing well until her sister in March 19 and then she started to drink alcohol again. She also reports has been admitted for psychiatric issues in the past and the last was sometime last year. She is on an STEPHANIE by police. here for evaluation. Historical: - Allergies: 11:50 No Known Allergies; ld1 - PMHx: 11:50 depressive disorder; Hypertension; ld1 - PSHx: 11:50 section; Gastric Bypass; Cholecystectomy; Ligation of fallopian tube; ld1 - Immunization history:: Adult Immunizations up to date. - Infectious Disease History:: Denies. - Social history:: Smoking status: Patient denies any tobacco usage or history of. - History obtained from: EMS. ROS: 12:05 Constitutional: Negative for fever, chills, and weight loss, Cardiovascular: Negative sw6 for chest pain, palpitations, and edema, Respiratory: Negative for shortness of breath, cough, wheezing, and pleuritic chest pain, Abdomen/GI: Negative for abdominal pain, nausea, vomiting, diarrhea, and constipation, 12:05 Psych: Positive for alcohol dependence, suicide gesture, 12:05 All other systems are negative, Exam: 12:05 Constitutional: This is a well developed, well nourished patient who is awake, alert, sw6 and in no acute distress. Cardiovascular: Regular rate and rhythm with a normal S1 and S2. No gallops, murmurs, or rubs. Normal PMI, no JVD. No pulse deficits. Respiratory: Lungs have equal breath sounds bilaterally, clear to auscultation and percussion. No rales, rhonchi or wheezes noted. No increased work of breathing, no retractions or nasal flaring. Abdomen/GI: Soft, non-tender, with normal bowel sounds. No distension or tympany. No guarding or rebound. No evidence of tenderness throughout. Neuro: Awake and alert, GCS 15, oriented to person, place, time, and situation. Cranial nerves II-XII grossly intact. Motor strength 5/5 in all extremities. Sensory grossly intact. Cerebellar exam normal. Normal gait. 12:05 Psych: Behavior/mood is depressed, Patient having thoughts of suicide. Plan for suicide is ingestion of pills 12:25 ECG was reviewed by the Attending Physician. Vital Signs: 11:50 BP 112 / 71; Pulse 75; Resp 18; Temp 97.4(TE); Pulse Ox 95% on R/A; Weight 65.77 kg; ld1 Height 5 ft. 3 in. ; Pain 0/10; 13:42 BP 98 / 66; Pulse 71; Resp 18; Pulse Ox 98% on R/A; ld1 19:00 BP 126 / 80; Pulse 83; Resp 16; Pulse Ox 98% on R/A; kmf 23:16 BP 110 / 74; Pulse 80; Resp 17; Pulse Ox 97% on R/A; kmf 11:50 Body Mass Index 25.69 (65.77 kg, 160.02 cm) ld1 11:50 Pain Scale: Adult ld1 MDM: 11:33 Medical Screening Exam initiated 12:05 Differential diagnosis: acute psychotic break, depression, psychosis secondary to 6 non-compliance. Data reviewed: vital signs, nurses notes, EMS record. 13:37 Data reviewed: lab test result(s), EKG. ED course: The patient is doing well here in [facility] the ER. Her laboratory studies show she is intoxicated with a blood alcohol level of 383. She is negative for COVID and influenza. Her other laboratory studies are unremarkable. The peak onset of hydralazine is around 3 to 4 hours after ingestion. She has been in the ER for approximately 2 hours and took the medication 1 to 2 hours prior to arrival. Therefore she is almost passed the peak onset of affect for her medication. She will need to be more sober for evaluation by [facility].. 20:50 ED course: The patient is doing well here in the ER. She clinically appears sober. She [facility] does require a repeat alcohol level prior to searching for inpatient psychiatric bed. She signed out Dr. Michael pending the above. . 08/03 11:34 Order name: Acetaminophen; Complete Time: 13:36 08/03 13:36 Interpretation: Within normal limits: ACETA < 2.5. 08/03 11:34 Order name: Basic Metabolic Panel; Complete Time: 13:36 08/03 13:36 Interpretation: Within normal limits. 08/03 11:34 Order name: CBC with Diff; Complete Time: 12:41 08/03 12:41 Interpretation: Within normal limits. 08/03 11:34 Order name: ETOH Level; Complete Time: 13:36 08/03 13:36 Interpretation: Abnormal: ETOH 383. 08/03 11:34 Order name: Hepatic Function; Complete Time: 13:36 08/03 13:36 Interpretation: Within normal limits. 08/03 11:34 Order name: PT-INR; Complete Time: 12:41 08/03 12:41 Interpretation: Within normal limits: INR <p>0.94</p>. 08/03 11:34 Order name: Ptt, Activated; Complete Time: 12:41 08/03 12:41 Interpretation: Within normal limits: PTT 29.4. 08/03 11:34 Order name: Salicylate; Complete Time: 13:36 08/03 13:37 Interpretation: Within normal limits: NANCIE < 2.2. 08/03 11:34 Order name: Urinalysis w/ reflexes; Complete Time: 14:11 08/03 14:11 Interpretation: Within normal limits. 08/03 11:34 Order name: Urine Drug Screen; Complete Time: 14:11 08/03 14:11 Interpretation: Within normal limits. 08/03 19:22 Order name: ETOH Level; Complete Time: 20:51 3 08/03 20:51 Interpretation: Within normal limits: ETOH 102. 08/03 11:34 Order name: EKG - Nurse/Tech; Complete Time: 12:18 08/03 11:34 Order name: IV Saline Lock; Complete Time: 12:18 08/03 11:34 Order name: Labs collected and sent; Complete Time: 12:18 08/03 11:34 Order name: Suicide Precautions; Complete Time: 11:57 08/03 11:34 Order name: Suicide Screening ([place]); Complete Time: 11:57 EC:25 Rate is 73 beats/min. Rhythm is regular. QRS [place] is Normal. [place] interval is normal. QRS sw6 interval is normal. QT interval is normal. No Q waves. T waves are Normal. No ST changes noted. 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 EDMS EDMS 11:35 11:35 BASIC METABOLIC PANEL+C.LAB.BRZ ordered. EDMS EDMS 11:35 11:35 CBC+H.LAB.BRZ ordered. EDMS EDMS 11:35 11:35 ETHANOL+C.LAB.BRZ ordered. EDMS EDMS 11:35 11:35 HEPATIC FUNCTION+C.LAB.BRZ ordered. EDMS EDMS 11:35 11:35 PROTIME (+INR)+COAG.LAB.BRZ ordered. EDMS EDMS 11:35 11:35 PTT, ACTIVATED+COAG.LAB.BRZ ordered. EDMS EDMS 11:35 11:35 SALICYLATE+C.LAB.BRZ ordered. EDMS EDMS 11:35 11:35 Urinalysis+U.LAB.BRZ ordered. EDMS EDMS 11:35 11:35 URINE DRUG SCREEN+UC.LAB.BRZ ordered. EDMS EDMS 23:27 20:32 Dr. pham lg3
[2024-08-03] MEDS ORDERED: DIAZEPAM 2 MG TABLET ONE (22:51)
[2024-08-03 23:57] VITALS: TEMP 97.4
[2024-08-04 00:14] VITALS: BP 110/74; O2SAT 97
--- NOTE | 2024-08-07 12:22 | EKG ---
Test Date: 2024-08-03 Test Time: 12:21:38 Transition Mgr: LISANDRA MEASUREMENT RESULTS: Intervals: Rate: 73 CA: 164 QRSD: 92 QT: 408 QTc: 449 [place]: P: 57 CA: 164 QRS: 74 T: 64 INTERPRETIVE STATEMENTS: Normal sinus rhythm Normal ECG Compared to ECG 07/03/2024 07:52:52 No significant changes Electronically Signed On 08-07-24 12:11:49 CDT by David Macdonald
== END 2024-08-03 23:27 ==
LOC: ER 11:27
DX: R45.851 Suicidal ideations (principal); F32.A Depression, unspecified
CPT/HCPCS: 36415; 80048; 80076; 80143; 80179; 80307; 81001; 82077; 85025; 85610; 85730; 93005; 99285